=== PATIENT | male | born 1965 | race Caucasian/White ===

== ENCOUNTER 2020-09-30 20:33 | Inpatient (IN) | payer SELFPAY ==
[2020-09-30] MEDS ORDERED: Aspirin 81 MG Tab.Chew PO ONE (20:59)
[2020-09-30] MEDS ORDERED: Sodium Chloride 0.9% 2.5 ML Syringe FLUSH PRN (20:59)
[2020-09-30] MEDS ORDERED: Sodium Chloride 0.9% 10 ML Syringe FLUSH PRN (20:59)
[2020-09-30] MEDS ORDERED: Nitroglycerin 2% Oint 1 GM UD Packet TOP ONE (21:01)
[2020-09-30] MEDS ORDERED: Furosemide 40 MG/4 ML VIAL IVPUSH ONE (21:01)
[2020-09-30] MEDS ORDERED: Enalaprilat 1.25 MG/ML SDV IVPUSH ONE (21:02)
--- NOTE | 2020-09-30 21:07 | EDM.PDOC ---
ED HPI GENERAL MEDICAL PROBLEM - General Chief Complaint: Cardiovascular Problem Stated Complaint: SWOLLEN LEGS Time Seen by Provider: 09/30/20 20:43 - History of Present Illness INITIAL COMMENTS - FREE TEXT/NARRATIVE: HISTORY AND PHYSICAL: History of present illness: This is a 55-year-old gentleman who presents ER today secondary to increasing shortness of breath over the last several days with increased lower extremity edema, increased dyspnea on exertion, increased orthopnea, positive PND. Patient denies any history of hypertension, diabetes, liver, lung, kidney, congestive heart failure, WI, strokes, PE, DVT history. Patient denies any recent fevers, shakes, chills, nausea, vomiting, diarrhea, dysuria, frequency, urgency. Patient reports that he has a long history of tobacco use and he has a chronic smoker's cough however he reports increased cough with some clear sputum over the last several days. Patient denies any hemoptysis. Patient denies any coronavirus concerns. Patient denies any abdominal pain. Patient denies any rhinorrhea or sore throat. Patient reports he feels like his abdomen is distended and that he has not moved his bowels as normal as usual. Patient reports that he has not seen a physician in quite some time but he normally checks his blood pressure at home and last time he checked it was approximately 4 months ago and he said that it was normal, 115/70 range per patient's report. Review of systems: As per history of present illness and below otherwise all systems reviewed and negative. Past medical history: As per history of present illness and as reviewed below otherwise noncontributory. Surgical history: As per history of present illness and as reviewed below otherwise noncontributory. Social history: No reported history of drug or alcohol abuse. Family history: As per history of present illness and as reviewed below otherwise noncontributory. Physical exam: Constitutional: Patient is oriented to person, place, and time. Appears well- developed and well-nourished. No distress. HEENT: Moist mucous membranes Head: Normocephalic and atraumatic Eyes: Right eye exhibits no discharge. Left eye exhibits no discharge. No scleral icterus Neck: Normal range of motion. No tracheal deviation present. Cardiovascular: Normal rate and regular rhythm. Pulmonary: Effort normal, no respiratory distress. Abdominal: No distention Musculoskeletal: Normal range of motion Neurologic: Alert and oriented to person, place and time. Skin: [place], warm and dry. Psychiatric: Normal mood and affect. Behavior is normal. Judgment and thought content normal. Nursing note and vital signs have been reviewed Patient's ER physical exam is significant for tachypnea, patient's pulse ox is 88% on room air, patient has 2-3+ bipedal edema extending up to his thigh. Patient has no scrotal edema or abdominal wall edema. Patient has diminished breath sounds bilaterally his lungs, he is tachypneic, he does have some bibasilar rales as well. Patient's heart is tachycardic with a rate of 126. Diagnostics: EKG: As interpreted by ER physician: Edwardo: Nonspecific ST-T wave abnormalities Normal axis No evidence of ST elevation WI Sinus tachycardia 126 Therapeutics: IV enalapril Lasix 40 mg IV Nitropaste 2 inches anterior chest wall 2 L nasal cannula O2 Assessment and plan: This is a 55-year-old gentleman with no significant past medical history with poor access to healthcare who presents ER today with increased shortness of breath and signs symptoms consistent with likely new onset pulmonary edema/CHF. Patient will have labs drawn including a CBC, CMP, BNP, troponin, chest x-ray. Patient be given Lasix 40 mg IV, aspirin 325 mg p.o., Nitropaste 2 inches to the anterior chest wall, and enalapril 1.25 mg IV. Patient with significantly elev ated blood pressure. Patient is not on any antihypertensive medications at this time. Given his elevated blood pressure and his congestive heart failure symptoms patient will be treated aggressively for his hypertension with Nitropaste, Lasix as well as IV enalapril. Critical Care: The high probability of sudden, clinically significant deterioration in the patient's condition required the highest level of my preparedness to intervene urgently. The services I provided to this patient were to treat and/or prevent clinically significant deterioration. Services included the following: chart data review, reviewing nursing notes and/or old charts, documentation time, automotive consultant collaboration regarding findings and treatment options, medication orders and management, direct patient care, vital sign assessments and ordering, interpreting and reviewing diagnostic studies/lab tests. Aggregate critical care time includes only time during which I was engaged inwork directly related to the patient's care, as described above, whether at the bedside or elsewhere in the Emergency Department. It did not include time spent performing other reported procedures or the services of residents, students, nurses or physician assistants. Critical Care Time: 35 minutes Patient presents ER today with accelerated hypertension/hypertensive urgency with pulmonary edema resulting in respiratory failure secondary to hypoxia. Patient responding well to 2 L of O2 nasal cannula. Patient given Lasix 40 mg IV with good diuresis. Enalapril 1.25 IV given as well as Nitropaste 2 inches anterior chest wall with improvement in his blood pressure. Patient's blood pressure currently is 145/76. I have discussed the case with Dr. Morgan who agrees with inpatient level of care for this patient. Definitive disposition and diagnosis as appropriate pending reevaluation and review of above. Bilateral Lower Leg Pain Score (Numeric/FACES): 3 - Related Data Allergies Allergy/AdvReac Type Severity Reaction Status Date / Time No Known Allergies Allergy Verified 09/30/20 20:56 Home Meds: Home Meds . [No Known Home Meds] 09/30/20 [History] ED ROS GENERAL - Review of Systems Review Of Systems: See Below ED EXAM, GENERAL - Physical Exam Exam: See Below #1 Interpretation EKG Interpretation Comments: EKG: As interpreted by ER physician: Edwardo: Nonspecific ST-T wave abnormalities Normal axis No evidence of ST elevation [place] Sinus tachycardia at 126 Course - Vital Signs Last Recorded V/S: Last Vital Signs Temp 96.8 F L 09/30/20 20:53 Pulse 114 H 09/30/20 22:25 Resp 18 09/30/20 22:25 BP 135/84 09/30/20 22:25 Pulse Ox 99 09/30/20 22:25 - Orders/Labs/Meds Orders: Active Orders 24 hr Category Date Time Status Cardiac Monitoring [RC] . DIRECTED Care 09/30/20 20:59 Active EKG Documentation Completion [RC] AM Care 09/30/20 20:59 Active Pulse Oximetry [RC] ASDIRECTED Care 09/30/20 20:59 Active Sodium Chloride 0.9% [Saline Flush] Med 09/30/20 20:59 Active 10 ml FLUSH ASDIRECTED PRN Sodium Chloride 0.9% [Saline Flush] Med 09/30/20 20:59 Active 2.5 ml FLUSH ASDIRECTED PRN Saline Lock Insert [OM.PC] Stat Oth 09/30/20 20:59 Ordered Medication Orders Sodium Chloride (Saline Flush) 10 ml FLUSH ASDIRECTED PRN PRN Reason: Keep Vein Open Last Admin: 09/30/20 21:05 Dose: 10 ml Documented by: PAT Sodium Chloride (Saline Flush) 2.5 ml FLUSH ASDIRECTED PRN PRN Reason: Keep Vein Open Last Admin: 09/30/20 21:05 Dose: 2.5 ml Documented by: PAT Labs: Laboratory Tests 09/30/20 09/30/20 09/30/20 Range/Units 20:46 20:46 20:46 WBC 12.36 H (4.0-11.0) K/uL RBC 5.81 (4.50-5.90) M/uL Hgb 12.7 L (13.0-17.0) g/dL Hct 43.5 (38.0-50.0) % MCV 74.9 L (80.0-98.0) fL MCH 21.9 L (27.0-32.0) pg MCHC 29.2 L (31.0-37.0) g/dL RDW Std Deviation 45.9 (28.0-62.0) fl RDW Coeff of Chelsie 17 H (11.0-15.0) % Plt Count 365 (150-400) K/uL MPV 9.50 (7.40-12.00) fL Neut % (Auto) 75.5 (48.0-80.0) % Lymph % (Auto) 16.3 (16.0-40.0) % Arthur % (Auto) 6.8 (0.0-15.0) % Eos % (Auto) 1.0 (0.0-7.0) % Baso % (Auto) 0.4 (0.0-1.5) % Neut # (Auto) 9.3 H (1.4-5.7) K/uL Lymph # (Auto) 2.0 (0.6-2.4) K/uL Arthur # (Auto) 0.8 (0.0-0.8) K/uL Eos # (Auto) 0.1 (0.0-0.7) K/uL Baso # (Auto) 0.1 (0.0-0.1) K/uL Nucleated RBC % 0.0 /100WBC Nucleated RBCs # 0 K/uL INR 1.14 Sodium 140 (136-148) mmol/L Potassium 3.6 (3.5-5.1) mmol/L Chloride 103 (98-107) mmol/L Carbon Dioxide 27.8 (21.0-32.0) mmol/L BUN 17 (7.0-18.0) mg/dL Creatinine 1.4 H (0.8-1.3) mg/dL Est Cr Clr Drug Dosing 57.68 mL/min Estimated GFR (MDRD) 52.6 ml/min Glucose 195 H (74-106) mg/dL Calcium 9.0 (8.5-10.1) mg/dL Magnesium 2.2 (1.8-2.4) mg/dL Total Bilirubin 0.6 (0.2-1.0) mg/dL AST 28 (15-37) IU/L ALT 42 (14-63) IU/L Alkaline Phosphatase 166 H (46-116) U/L Troponin I 0.053 (0.000-0.056) ng/mL B-Natriuretic Peptide (<100) PG/ML Total Protein 7.2 (6.4-8.2) g/dL Albumin 3.3 L (3.4-5.0) g/dL Globulin 3.9 (2.6-4.0) g/dL Albumin/Globulin Ratio 0.9 (0.9-1.6) SARS-CoV-2 RNA (LAURA) (NEGATIVE) 09/30/20 09/30/20 Range/Units 20:46 21:00 WBC (4.0-11.0) K/uL RBC (4.50-5.90) M/uL Hgb (13.0-17.0) g/dL Hct (38.0-50.0) % MCV (80.0-98.0) fL MCH (27.0-32.0) pg MCHC (31.0-37.0) g/dL RDW Std Deviation (28.0-62.0) fl RDW Coeff of Chelsie (11.0-15.0) % Plt Count (150-400) K/uL MPV (7.40-12.00) fL Neut % (Auto) (48.0-80.0) % Lymph % (Auto) (16.0-40.0) % Arthur % (Auto) (0.0-15.0) % Eos % (Auto) (0.0-7.0) % Baso % (Auto) (0.0-1.5) % Neut # (Auto) (1.4-5.7) K/uL Lymph # (Auto) (0.6-2.4) K/uL Arthur # (Auto) (0.0-0.8) K/uL Eos # (Auto) (0.0-0.7) K/uL Baso # (Auto) (0.0-0.1) K/uL Nucleated RBC % /100WBC Nucleated RBCs # K/uL INR Sodium (136-148) mmol/L Potassium (3.5-5.1) mmol/L Chloride (98-107) mmol/L Carbon Dioxide (21.0-32.0) mmol/L BUN (7.0-18.0) mg/dL Creatinine (0.8-1.3) mg/dL Est Cr Clr Drug Dosing mL/min Estimated GFR (MDRD) ml/min Glucose (74-106) mg/dL Calcium (8.5-10.1) mg/dL Magnesium (1.8-2.4) mg/dL Total Bilirubin (0.2-1.0) mg/dL AST (15-37) IU/L ALT (14-63) IU/L Alkaline Phosphatase (46-116) U/L Troponin I (0.000-0.056) ng/mL B-Natriuretic Peptide 840 H (<100) PG/ML Total Protein (6.4-8.2) g/dL Albumin (3.4-5.0) g/dL Globulin (2.6-4.0) g/dL Albumin/Globulin Ratio (0.9-1.6) SARS-CoV-2 RNA (LAURA) NEGATIVE (NEGATIVE) Meds: Medications Generic Name Dose Route Start Last Admin Trade Name Freq PRN Reason Stop Dose Admin Sodium Chloride 10 ml 09/30/20 20:59 09/30/20 21:05 Saline Flush FLUSH 10 ml ASDIRECTED PRN Administration Keep Vein Open Sodium Chloride 2.5 ml 09/30/20 20:59 09/30/20 21:05 Saline Flush FLUSH 2.5 ml ASDIRECTED PRN Administration Keep Vein Open Discontinued Medications Generic Name Dose Route Start Last Admin Trade Name Freq PRN Reason Stop Dose Admin Aspirin 324 mg 09/30/20 20:59 09/30/20 21:05 Aspirin PO 09/30/20 21:00 324 mg ONETIME ONE Administration Enalaprilat 1.25 mg 09/30/20 21:02 09/30/20 21:12 Vasotec Iv IVPUSH 09/30/20 21:03 1.25 mg ONETIME ONE Administration Furosemide 40 mg 09/30/20 21:01 09/30/20 21:05 Lasix IVPUSH 09/30/20 21:02 40 mg NOW ONE Administration Nitroglycerin 2 gm 09/30/20 21:01 09/30/20 21:05 Nitro-Bid 2% TOP 09/30/20 21:02 2 gm ONETIME ONE Administration Departure - Departure Time of Disposition: 22:12 Disposition: Admitted As Inpatient 66 Condition: Fair Clinical Impression: Hypertensive heart disease, Pulmonary edema with congestive heart failure, Respiratory failure with hypoxia, Hypertensive urgency, malignant Sepsis Event Note (ED) - Evaluation Sepsis Screening Result: No Definite Risk - Focused Exam Vital Signs: Vital Signs Temp Pulse Resp BP BP Pulse Ox 09/30/20 21:46 118 H 141/91 H 98 09/30/20 21:12 116 H 18 167/117 H 167/117 H 96 09/30/20 20:53 96.8 F L 125 H 20 181/120 H 98 - My Orders Last 24 Hours: My Active Orders 09/30/20 20:59 Cardiac Monitoring [RC] . DIRECTED EKG Documentation Completion [RC] AM Pulse Oximetry [RC] ASDIRECTED Sodium Chloride 0.9% [Saline Flush] 10 ml FLUSH ASDIRECTED PRN Sodium Chloride 0.9% [Saline Flush] 2.5 ml FLUSH ASDIRECTED PRN Saline Lock Insert [OM.PC] Stat - Assessment/Plan Last 24 Hours: My Active Orders 09/30/20 20:59 Cardiac Monitoring [RC] . DIRECTED EKG Documentation Completion [RC] AM Pulse Oximetry [RC] ASDIRECTED Sodium Chloride 0.9% [Saline Flush] 10 ml FLUSH ASDIRECTED PRN Sodium Chloride 0.9% [Saline Flush] 2.5 ml FLUSH ASDIRECTED PRN Saline Lock Insert [OM.PC] Stat
[2020-09-30 21:18] LABS: CARBON DIOXIDE,CO2 27.8 mmol/L (21.0-32.0); POTASSIUM,K 3.6 mmol/L (3.5-5.1)
--- NOTE | 2020-09-30 21:37 | CR ---
Indication: Shortness of breath. Technique: AP portable view of the chest. Comparison: None Findings: The heart is enlarged. No focal infiltrate, pleural effusion, or pneumothorax is identified. Impression: Cardiomegaly. Dictated by Pari Cruz MD @ Sep 30 2020 9:34PM Signed by Dr. Pari Cruz @ Sep 30 2020 9:36PM
[2020-10-01] MEDS ORDERED: 50% Dextrose in Water 50 ML Syringe IV PRN ×2 (00:04→08:49)
[2020-10-01] MEDS ORDERED: Glucagon,Human Recombinant 1 MG Vial IM PRN ×2 (00:04→08:49)
[2020-10-01] MEDS ORDERED: 50% Dextrose in Water 50 ML Syringe IVPUSH PRN (00:09)
[2020-10-01 06:50] LABS: CARBON DIOXIDE,CO2 29.8 mmol/L (21.0-32.0); POTASSIUM,K 3.8 mmol/L (3.5-5.1)
[2020-10-01] MEDS ORDERED: Insulin Aspart 100 Units/ML 3 ML Pen SUBCUT SCH ×2 (07:30→11:30)
--- NOTE | 2020-10-01 07:50 | PCM.HP.2 ---
H&P History of Present Illness - General Date of Service: 10/01/20 Admit Problem/Dx: Admission Diagnosis/Problem Admission Diagnosis/Problem Pulmonary edema w/congestive heart failure w/ preserved LV function Source of Information: Patient History Limitations: Reports: No Limitations - History of Present Illness Initial Comments - Free Text/Narative: 55-year-old male presented complaining of shortness of breath, leg swelling, abdominal distention and cough for the past 2 weeks. He reports no significant PMH. Patient reports his symptoms have been on and off for the past few months but he started noticing a significant difference over the past 2 weeks. He also reports feeling short of breath when laying down and has gained a lot of weight in recent weeks. Smokes tobacco, drinks alcohol occasionally and denies illicit drug use. He denies having any fevers, chills, sore throat, chest pain, nausea, vomiting, abdominal pain, blood in stool, blood in urine, numbness or tingling in extremities. In the ER, CBC and CMP unremarkable. BNP 840. Troponin was negative. CXR showed cardiomegaly. Patient requiring 2 L NC. He was given IV enalapril, aspirin 325 mg, nitro paste and IV lasix 40 mg. Patient admitted for further evaluation and treatment. Bilateral Lower Leg Pain Score (Numeric/FACES): 3 - Related Data Allergies/Adverse Reactions: Allergies Allergy/AdvReac Type Severity Reaction Status Date / Time No Known Allergies Allergy Verified 09/30/20 20:56 Home Medications: Home Meds Furosemide 40 mg PO DAILY 30 Days #30 tablet 10/01/20 [Rx] Past Medical History - Past Health History Medical/Surgical History: Denies Medical/Surgical History - Infectious Disease History Infectious Disease History: Reports: Chicken Pox Social & Family History - Family History Family Medical History: Noncontributory - Tobacco Use Tobacco Use Status *Q: Current Every Day Tobacco User Years of Tobacco use: 30 Packs/Tins Daily: 1 Used Tobacco, but Quit: No - Caffeine Use Caffeine Use: Reports: None - Recreational Drug Use Recreational Drug Use: No H&P Review of Systems - Review of Systems: Review Of Systems: Comprehensive ROS is negative, except as noted in HPI. Exam - Exam Exam: See Below - Vital Signs Vital Signs: Last Vital Signs Temp 36.4 C 10/01/20 04:29 Pulse 110 H 10/01/20 04:29 Resp 18 10/01/20 04:29 BP 90/51 L 10/01/20 04:29 Pulse Ox 90 L 10/01/20 04:29 Weight: 101.6 kg - Exam General: Alert, Oriented, Cooperative HEENT: Conjunctiva Clear, EOMI, Hearing Intact, Pupils Equal, Pupils Reactive Neck: Supple, Trachea Midline Lungs: Normal Respiratory Effort, Other (rales in bases b/l) Cardiovascular: Regular Rate, Regular Rhythm GI/Abdominal Exam: Normal Bowel Sounds, Soft, Non-Tender, Other (abdominal distention, soft, non-tender) Extremities: Other (2+ pitting edema b/l) Skin: Warm, Dry, Intact Neurological: Cranial Nerves Intact, Strength Equal Bilateral, Normal Speech, Normal Tone Psychiatric: Alert, Normal Affect, Normal Mood - Patient Data Lab Results Last 24 hrs: Laboratory Results - last 24 hr 09/30/20 09/30/20 09/30/20 Range/Units 20:46 20:46 20:46 WBC 12.36 H (4.0-11.0) K/uL RBC 5.81 (4.50-5.90) M/uL Hgb 12.7 L (13.0-17.0) g/dL Hct 43.5 (38.0-50.0) % MCV 74.9 L (80.0-98.0) fL MCH 21.9 L (27.0-32.0) pg MCHC 29.2 L (31.0-37.0) g/dL RDW Std Deviation 45.9 (28.0-62.0) fl RDW Coeff of Chelsie 17 H (11.0-15.0) % Plt Count 365 (150-400) K/uL MPV 9.50 (7.40-12.00) fL Neut % (Auto) 75.5 (48.0-80.0) % Lymph % (Auto) 16.3 (16.0-40.0) % Green % (Auto) 6.8 (0.0-15.0) % Eos % (Auto) 1.0 (0.0-7.0) % Baso % (Auto) 0.4 (0.0-1.5) % Neut # (Auto) 9.3 H (1.4-5.7) K/uL Lymph # (Auto) 2.0 (0.6-2.4) K/uL Green # (Auto) 0.8 (0.0-0.8) K/uL Eos # (Auto) 0.1 (0.0-0.7) K/uL Baso # (Auto) 0.1 (0.0-0.1) K/uL Nucleated RBC % 0.0 /100WBC Nucleated RBCs # 0 K/uL INR 1.14 Sodium 140 (136-148) mmol/L Potassium 3.6 (3.5-5.1) mmol/L Chloride 103 (98-107) mmol/L Carbon Dioxide 27.8 (21.0-32.0) mmol/L BUN 17 (7.0-18.0) mg/dL Creatinine 1.4 H (0.8-1.3) mg/dL Est Cr Clr Drug Dosing 57.68 mL/min Estimated GFR (MDRD) 52.6 ml/min Glucose 195 H (74-106) mg/dL Calcium 9.0 (8.5-10.1) mg/dL Magnesium 2.2 (1.8-2.4) mg/dL Total Bilirubin 0.6 (0.2-1.0) mg/dL AST 28 (15-37) IU/L ALT 42 (14-63) IU/L Alkaline Phosphatase 166 H (46-116) U/L Troponin I 0.053 (0.000-0.056) ng/mL B-Natriuretic Peptide (<100) PG/ML Total Protein 7.2 (6.4-8.2) g/dL Albumin 3.3 L (3.4-5.0) g/dL Globulin 3.9 (2.6-4.0) g/dL Albumin/Globulin Ratio 0.9 (0.9-1.6) Urine Color Urine Appearance Urine pH (5.0-8.0) Ur Specific [place] (1.001-1.035) Urine Protein (NEGATIVE) mg/dL Urine Glucose (UA) (NEGATIVE) mg/dL Urine Ketones (NEGATIVE) mg/dL Urine Occult Blood (NEGATIVE) Urine Nitrite (NEGATIVE) Urine Bilirubin (NEGATIVE) Urine Urobilinogen (<2.0) EU/dL Ur Leukocyte Esterase (NEGATIVE) Urine Opiates Screen (NEGATIVE) Ur Oxycodone Screen (NEGATIVE) Urine Methadone Screen (NEGATIVE) Ur Barbiturates Screen (NEGATIVE) Ur Phencyclidine Scrn (NEGATIVE) Ur Amphetamine Screen (NEGATIVE) U Methamphetamines Scrn (NEGATIVE) U Benzodiazepines Scrn (NEGATIVE) U Cocaine Metab Screen (NEGATIVE) U Marijuana (THC) Screen (NEGATIVE) SARS-CoV-2 RNA (LAURA) (NEGATIVE) 09/30/20 09/30/20 09/30/20 Range/Units 20:46 21:00 22:23 WBC (4.0-11.0) K/uL RBC (4.50-5.90) M/uL Hgb (13.0-17.0) g/dL Hct (38.0-50.0) % MCV (80.0-98.0) fL MCH (27.0-32.0) pg MCHC (31.0-37.0) g/dL RDW Std Deviation (28.0-62.0) fl RDW Coeff of Chelsie (11.0-15.0) % Plt Count (150-400) K/uL MPV (7.40-12.00) fL Neut % (Auto) (48.0-80.0) % Lymph % (Auto) (16.0-40.0) % Green % (Auto) (0.0-15.0) % Eos % (Auto) (0.0-7.0) % Baso % (Auto) (0.0-1.5) % Neut # (Auto) (1.4-5.7) K/uL Lymph # (Auto) (0.6-2.4) K/uL Green # (Auto) (0.0-0.8) K/uL Eos # (Auto) (0.0-0.7) K/uL Baso # (Auto) (0.0-0.1) K/uL Nucleated RBC % /100WBC Nucleated RBCs # K/uL INR Sodium (136-148) mmol/L Potassium (3.5-5.1) mmol/L Chloride (98-107) mmol/L Carbon Dioxide (21.0-32.0) mmol/L BUN (7.0-18.0) mg/dL Creatinine (0.8-1.3) mg/dL Est Cr Clr Drug Dosing mL/min Estimated GFR (MDRD) ml/min Glucose (74-106) mg/dL Calcium (8.5-10.1) mg/dL Magnesium (1.8-2.4) mg/dL Total Bilirubin (0.2-1.0) mg/dL AST (15-37) IU/L ALT (14-63) IU/L Alkaline Phosphatase (46-116) U/L Troponin I (0.000-0.056) ng/mL B-Natriuretic Peptide 840 H (<100) PG/ML Total Protein (6.4-8.2) g/dL Albumin (3.4-5.0) g/dL Globulin (2.6-4.0) g/dL Albumin/Globulin Ratio (0.9-1.6) Urine Color Urine Appearance Urine pH (5.0-8.0) Ur Specific [place] (1.001-1.035) Urine Protein (NEGATIVE) mg/dL Urine Glucose (UA) (NEGATIVE) mg/dL Urine Ketones (NEGATIVE) mg/dL Urine Occult Blood (NEGATIVE) Urine Nitrite (NEGATIVE) Urine Bilirubin (NEGATIVE) Urine Urobilinogen (<2.0) EU/dL Ur Leukocyte Esterase (NEGATIVE) Urine Opiates Screen NEGATIVE (NEGATIVE) Ur Oxycodone Screen NEGATIVE (NEGATIVE) Urine Methadone Screen NEGATIVE (NEGATIVE) Ur Barbiturates Screen NEGATIVE (NEGATIVE) Ur Phencyclidine Scrn NEGATIVE (NEGATIVE) Ur Amphetamine Screen NEGATIVE (NEGATIVE) U Methamphetamines Scrn NEGATIVE (NEGATIVE) U Benzodiazepines Scrn NEGATIVE (NEGATIVE) U Cocaine Metab Screen NEGATIVE (NEGATIVE) U Marijuana (THC) Screen NEGATIVE (NEGATIVE) SARS-CoV-2 RNA (LAURA) NEGATIVE (NEGATIVE) 09/30/20 10/01/20 10/01/20 Range/Units 22:23 05:00 05:00 WBC 11.60 H (4.0-11.0) K/uL RBC 5.09 (4.50-5.90) M/uL Hgb 11.0 L (13.0-17.0) g/dL Hct 38.2 (38.0-50.0) % MCV 75.0 L (80.0-98.0) fL MCH 21.6 L (27.0-32.0) pg MCHC 28.8 L (31.0-37.0) g/dL RDW Std Deviation 46.2 (28.0-62.0) fl RDW Coeff of Chelsie 17 H (11.0-15.0) % Plt Count 377 (150-400) K/uL MPV 10.00 (7.40-12.00) fL Neut % (Auto) 74.5 (48.0-80.0) % Lymph % (Auto) 15.3 L (16.0-40.0) % Green % (Auto) 8.5 (0.0-15.0) % Eos % (Auto) 1.3 (0.0-7.0) % Baso % (Auto) 0.4 (0.0-1.5) % Neut # (Auto) 8.6 H (1.4-5.7) K/uL Lymph # (Auto) 1.8 (0.6-2.4) K/uL Green # (Auto) 1.0 H (0.0-0.8) K/uL Eos # (Auto) 0.2 (0.0-0.7) K/uL Baso # (Auto) 0.1 (0.0-0.1) K/uL Nucleated RBC % 0.0 /100WBC Nucleated RBCs # 0 K/uL INR Sodium 142 (136-148) mmol/L Potassium 3.8 (3.5-5.1) mmol/L Chloride 105 (98-107) mmol/L Carbon Dioxide 29.8 (21.0-32.0) mmol/L BUN 17 (7.0-18.0) mg/dL Creatinine 1.3 (0.8-1.3) mg/dL Est Cr Clr Drug Dosing 62.12 mL/min Estimated GFR (MDRD) 57.3 ml/min Glucose 125 H (74-106) mg/dL Calcium 8.3 L (8.5-10.1) mg/dL Magnesium (1.8-2.4) mg/dL Total Bilirubin (0.2-1.0) mg/dL AST (15-37) IU/L ALT (14-63) IU/L Alkaline Phosphatase (46-116) U/L Troponin I (0.000-0.056) ng/mL B-Natriuretic Peptide (<100) PG/ML Total Protein (6.4-8.2) g/dL Albumin (3.4-5.0) g/dL Globulin (2.6-4.0) g/dL Albumin/Globulin Ratio (0.9-1.6) Urine Color COLORLESS Urine Appearance CLEAR Urine pH 7.0 (5.0-8.0) Ur Specific [place] 1.010 (1.001-1.035) Urine Protein NEGATIVE (NEGATIVE) mg/dL Urine Glucose (UA) NEGATIVE (NEGATIVE) mg/dL Urine Ketones NEGATIVE (NEGATIVE) mg/dL Urine Occult Blood NEGATIVE (NEGATIVE) Urine Nitrite NEGATIVE (NEGATIVE) Urine Bilirubin NEGATIVE (NEGATIVE) Urine Urobilinogen 0.2 (<2.0) EU/dL Ur Leukocyte Esterase NEGATIVE (NEGATIVE) Urine Opiates Screen (NEGATIVE) Ur Oxycodone Screen (NEGATIVE) Urine Methadone Screen (NEGATIVE) Ur Barbiturates Screen (NEGATIVE) Ur Phencyclidine Scrn (NEGATIVE) Ur Amphetamine Screen (NEGATIVE) U Methamphetamines Scrn (NEGATIVE) U Benzodiazepines Scrn (NEGATIVE) U Cocaine Metab Screen (NEGATIVE) U Marijuana (THC) Screen (NEGATIVE) SARS-CoV-2 RNA (LAURA) (NEGATIVE) Result Diagrams: 10/01/20 05:00 10/01/20 05:00 Sepsis Event Note - Evaluation Sepsis Screening Result: No Definite Risk - Focused Exam Vital Signs: Vital Signs Temp Pulse Resp BP BP Pulse Ox 10/01/20 04:29 36.4 C 110 H 18 90/51 L 90 L 09/30/20 23:10 36.1 C 115 H 17 135/94 H 98 09/30/20 22:55 114 H 16 139/84 98 09/30/20 22:25 114 H 18 135/84 99 09/30/20 21:46 118 H 141/91 H 98 09/30/20 21:12 116 H 18 167/117 H 167/117 H 96 09/30/20 20:53 36.0 C L 125 H 20 181/120 H 98 - Problem List (1) CHF (congestive heart failure) SNOMED Code(s): 20595953 ICD Code: I50.9 - HEART FAILURE, UNSPECIFIED Status: Acute (2) HTN (hypertension) SNOMED Code(s): 37370479 ICD Code: I10 - ESSENTIAL (PRIMARY) HYPERTENSION Status: Acute (3) Diabetes mellitus SNOMED Code(s): 43157258 ICD Code: E11.9 - TYPE 2 DIABETES MELLITUS WITHOUT COMPLICATIONS Status: Acute (4) Respiratory failure with hypoxia SNOMED Code(s): 58002871804261838 ICD Code: J96.91 - RESPIRATORY FAILURE, UNSPECIFIED WITH HYPOXIA Status: Acute Problem List Initiated/Reviewed/Updated: Yes Orders Last 24hrs: Active Orders 24 hr Category Date Time Status Patient Status [ADT] Routine ADT 09/30/20 22:09 Active Blood Glucose Check, Bedside [RC] TIDMEALS Care 10/01/20 00:01 Active Cardiac Monitoring [RC] . DIRECTED Care 09/30/20 20:59 Active Daily Weight [Height and Weight] [RC] DAILY Care 10/01/20 00:08 Active EKG Documentation Completion [RC] AM Care 09/30/20 20:59 Active Intake and Output Strict [RC] ASDIRECTED Care 10/01/20 00:08 Active Pulse Oximetry [RC] ASDIRECTED Care 09/30/20 20:59 Active Telemetry Monitoring [Cardiac Monitoring] [RC] . Care 10/01/20 00:09 Active DIRECTED ADA Diabetic [[place] [employer] Diet] [DIET Diet 10/01/20 Breakfast Active ] Fluid Restriction [DIET] Diet 10/01/20 Breakfast Active GLYCOSYLATED HEMOGLOBIN,HGBA1C [CHEM] Routine Lab 10/01/20 07:42 Ordered Dextrose 50% in Water Med 10/01/20 00:09 Active 50 ml IVPUSH ASDIRECTED PRN Glucagon,Human Recombinant [GlucaGen] Med 10/01/20 00:04 Active 1 mg IM ASDIRECTED PRN Insulin Aspart [NovoLOG] Med 10/01/20 07:30 Active See Protocol SUBCUT TIDAC Sodium Chloride 0.9% [Saline Flush] Med 09/30/20 20:59 Active 10 ml FLUSH ASDIRECTED PRN Sodium Chloride 0.9% [Saline Flush] Med 09/30/20 20:59 Active 2.5 ml FLUSH ASDIRECTED PRN Saline Lock Insert [OM.PC] Stat Oth 09/30/20 20:59 Ordered Medication Orders Dextrose/Water (Dextrose 50% In Water) 50 ml IVPUSH ASDIRECTED PRN PRN Reason: Hypoglycemia Glucagon (Glucagen) 1 mg IM ASDIRECTED PRN PRN Reason: Hypoglycemia Insulin Aspart (Novolog) 0 unit SUBCUT TIDAC SADA; Protocol Sodium Chloride (Saline Flush) 10 ml FLUSH ASDIRECTED PRN PRN Reason: Keep Vein Open Last Admin: 09/30/20 21:05 Dose: 10 ml Documented by: PAT Sodium Chloride (Saline Flush) 2.5 ml FLUSH ASDIRECTED PRN PRN Reason: Keep Vein Open Last Admin: 09/30/20 21:05 Dose: 2.5 ml Documented by: PAT Assessment/Plan Comment:: Assessment and Plan: 1. Acute hypoxic respiratory failure secondary to new-onset CHF exacerbation: - Admit to med/surg. Patient on telemetry. Will diurese with IV lasix 40 mg BID. Patient on strict I/O's, daily standing weight, fluid restrict < 2 L per day and low salt < 2 g per day. Unable to obtain ECHO over the weekend. 2. Diabetes mellitus type II: - HgbA1c 7.7. Patient on ADA diet, NovoLog SSI and accuchecks TIDAC. 3. DVT prophylaxis: - Lovenox 40 mg subcut qd.
[2020-10-01] MEDS ORDERED: Ondansetron 4 MG/2 ML SDV IVPUSH PRN (07:51)
[2020-10-01] MEDS ORDERED: Acetaminophen 325 MG Tab PO PRN (07:51)
[2020-10-01] MEDS ORDERED: Enoxaparin 40 MG/0.4 ML Syringe SUBCUT SCH (08:00)
[2020-10-01 08:13] LABS: HEMOGLOBIN A1C 7.7 % (4.5-6.2)
[2020-10-01] MEDS ORDERED: Furosemide 40 MG/4 ML VIAL IVPUSH SCH (09:00)
--- NOTE | 2020-10-01 14:02 | PCM.DCSUM1 ---
Discharge Summary - Hospital Course Free Text/Narrative:: 55-year-old male admitted for acute hypoxic respiratory failure secondary to new-onset CHF. He reported no significant PMH. CXR on admission showed cardiomegaly. BNP was 850. Troponin was negative. Patient was started on IV lasix and overnight noted significant important in his shortness of breath. Patient requested discharge the following morning against medical advice. It was recommended to patient to remain in the hospital for further diuresis with IV lasix, cardiac monitoring and to obtain ECHO. Patient's HgbA1c was 7.7 indicating new-onset type 2 DM. Despite being explained risks of leaving the hospital without completed treatment course patient still requested discharge against medical advice. He was provided scripts with PO lasix 40 mg qd and strongly advised to follow-up with a primary care provider as soon as possible and sanitor. He was given contact phone numbers to call and make these appointments. He was advised to monitor his blood pressure and return to the ER if he develops worsening shortness of breath, chest pain or leg swelling. - Discharge Data Discharge Date: 10/01/20 Discharge Disposition: Against Medical Advice 07 Condition: Stable - Referral to Home Health Primary Care Physician: PCP None - Discharge Diagnosis/Problem(s) (1) CHF (congestive heart failure) SNOMED Code(s): 72825455 ICD Code: I50.9 - HEART FAILURE, UNSPECIFIED Status: Acute (2) HTN (hypertension) SNOMED Code(s): 60115300 ICD Code: I10 - ESSENTIAL (PRIMARY) HYPERTENSION Status: Acute (3) Diabetes mellitus SNOMED Code(s): 26761686 ICD Code: E11.9 - TYPE 2 DIABETES MELLITUS WITHOUT COMPLICATIONS Status: Acute (4) Respiratory failure with hypoxia SNOMED Code(s): 52113813170464269 ICD Code: J96.91 - RESPIRATORY FAILURE, UNSPECIFIED WITH HYPOXIA Status: Acute - Patient Instructions Diet: Low Sodium, Diabetic Diet Fluid Restriction: 2000 mL Activity: Rest and Relax Today Notify Provider of: Fever, Increased Pain, Swelling and Redness, Drainage, Nausea and/or Vomiting - Discharge Plan *PRESCRIPTION DRUG MONITORING PROGRAM REVIEWED*: Not Applicable *COPY OF PRESCRIPTION DRUG MONITORING REPORT IN PATIENT GAIL: Not Applicable Prescriptions/Med Rec: Furosemide 40 mg PO DAILY 30 Days #30 tablet Home Medications: Home Meds Furosemide 40 mg PO DAILY 30 Days #30 tablet 10/01/20 [Rx] Patient Handouts: Type 2 Diabetes Mellitus, Diagnosis, Adult, Preventing Type 2 Diabetes Mellitus, Hyperglycemia, Jdfb-na-[id number], Type 2 Diabetes Mellitus, Self Care, Adult, [id number], Hypertension, Adult, Mini-fn-Gdzo, Acute Respiratory Failure, Adult, Heart Failure, Diagnosis, Kkqd-nt-Oxam, Pulmonary Edema, Mjcq-Vx-Bccf Forms: ED Department Discharge Referrals: Carter Luis MD [Physician] - (Please call on Saturday to set up earliest appointment available with Dr. Hill.) PCP,None [Primary Care Provider] - Joss Morales MD [Physician] - (Please call clinic on Saturday and obtain 1 week follow up with Dr. Morales.) - Discharge Summary/Plan Comment DC Time >30 min.: No - Patient Data Vitals - Most Recent: Last Vital Signs Temp 36.6 C 10/01/20 12:00 Pulse 110 H 10/01/20 12:00 Resp 18 10/01/20 12:00 BP 148/90 H 10/01/20 12:00 Pulse Ox 98 10/01/20 12:00 Weight - Most Recent: 101.6 kg I&O - Last 24 hours: Intake & Output 09/30/20 10/01/20 10/01/20 22:59 06:59 14:59 Intake Total 650 Output Total 1000 1050 Balance -1000 -400 Lab Results - Last 24 hrs: Laboratory Results - last 24 hr 09/30/20 09/30/20 09/30/20 Range/Units 20:46 20:46 20:46 WBC 12.36 H (4.0-11.0) K/uL RBC 5.81 (4.50-5.90) M/uL Hgb 12.7 L (13.0-17.0) g/dL Hct 43.5 (38.0-50.0) % MCV 74.9 L (80.0-98.0) fL MCH 21.9 L (27.0-32.0) pg MCHC 29.2 L (31.0-37.0) g/dL RDW Std Deviation 45.9 (28.0-62.0) fl RDW Coeff of Chelsie 17 H (11.0-15.0) % Plt Count 365 (150-400) K/uL MPV 9.50 (7.40-12.00) fL Neut % (Auto) 75.5 (48.0-80.0) % Lymph % (Auto) 16.3 (16.0-40.0) % [place] % (Auto) 6.8 (0.0-15.0) % Eos % (Auto) 1.0 (0.0-7.0) % Baso % (Auto) 0.4 (0.0-1.5) % Neut # (Auto) 9.3 H (1.4-5.7) K/uL Lymph # (Auto) 2.0 (0.6-2.4) K/uL [place] # (Auto) 0.8 (0.0-0.8) K/uL Eos # (Auto) 0.1 (0.0-0.7) K/uL Baso # (Auto) 0.1 (0.0-0.1) K/uL Nucleated RBC % 0.0 /100WBC Nucleated RBCs # 0 K/uL INR 1.14 Sodium 140 (136-148) mmol/L Potassium 3.6 (3.5-5.1) mmol/L Chloride 103 (98-107) mmol/L Carbon Dioxide 27.8 (21.0-32.0) mmol/L BUN 17 (7.0-18.0) mg/dL Creatinine 1.4 H (0.8-1.3) mg/dL Est Cr Clr Drug Dosing 57.68 mL/min Estimated GFR (MDRD) 52.6 ml/min Glucose 195 H (74-106) mg/dL Hemoglobin A1c (4.5-6.2) % Calcium 9.0 (8.5-10.1) mg/dL Magnesium 2.2 (1.8-2.4) mg/dL Total Bilirubin 0.6 (0.2-1.0) mg/dL AST 28 (15-37) IU/L ALT 42 (14-63) IU/L Alkaline Phosphatase 166 H (46-116) U/L Troponin I 0.053 (0.000-0.056) ng/mL B-Natriuretic Peptide (<100) PG/ML Total Protein 7.2 (6.4-8.2) g/dL Albumin 3.3 L (3.4-5.0) g/dL Globulin 3.9 (2.6-4.0) g/dL Albumin/Globulin Ratio 0.9 (0.9-1.6) Urine Color Urine Appearance Urine pH (5.0-8.0) Ur Specific Adams (1.001-1.035) Urine Protein (NEGATIVE) mg/dL Urine Glucose (UA) (NEGATIVE) mg/dL Urine Ketones (NEGATIVE) mg/dL Urine Occult Blood (NEGATIVE) Urine Nitrite (NEGATIVE) Urine Bilirubin (NEGATIVE) Urine Urobilinogen (<2.0) EU/dL Ur Leukocyte Esterase (NEGATIVE) Urine Opiates Screen (NEGATIVE) Ur Oxycodone Screen (NEGATIVE) Urine Methadone Screen (NEGATIVE) Ur Barbiturates Screen (NEGATIVE) Ur Phencyclidine Scrn (NEGATIVE) Ur Amphetamine Screen (NEGATIVE) U Methamphetamines Scrn (NEGATIVE) U Benzodiazepines Scrn (NEGATIVE) U Cocaine Metab Screen (NEGATIVE) U Marijuana (THC) Screen (NEGATIVE) SARS-CoV-2 RNA (LAURA) (NEGATIVE) 09/30/20 09/30/20 09/30/20 Range/Units 20:46 21:00 22:23 WBC (4.0-11.0) K/uL RBC (4.50-5.90) M/uL Hgb (13.0-17.0) g/dL Hct (38.0-50.0) % MCV (80.0-98.0) fL MCH (27.0-32.0) pg MCHC (31.0-37.0) g/dL RDW Std Deviation (28.0-62.0) fl RDW Coeff of Chelsie (11.0-15.0) % Plt Count (150-400) K/uL MPV (7.40-12.00) fL Neut % (Auto) (48.0-80.0) % Lymph % (Auto) (16.0-40.0) % [place] % (Auto) (0.0-15.0) % Eos % (Auto) (0.0-7.0) % Baso % (Auto) (0.0-1.5) % Neut # (Auto) (1.4-5.7) K/uL Lymph # (Auto) (0.6-2.4) K/uL [place] # (Auto) (0.0-0.8) K/uL Eos # (Auto) (0.0-0.7) K/uL Baso # (Auto) (0.0-0.1) K/uL Nucleated RBC % /100WBC Nucleated RBCs # K/uL INR Sodium (136-148) mmol/L Potassium (3.5-5.1) mmol/L Chloride (98-107) mmol/L Carbon Dioxide (21.0-32.0) mmol/L BUN (7.0-18.0) mg/dL Creatinine (0.8-1.3) mg/dL Est Cr Clr Drug Dosing mL/min Estimated GFR (MDRD) ml/min Glucose (74-106) mg/dL Hemoglobin A1c (4.5-6.2) % Calcium (8.5-10.1) mg/dL Magnesium (1.8-2.4) mg/dL Total Bilirubin (0.2-1.0) mg/dL AST (15-37) IU/L ALT (14-63) IU/L Alkaline Phosphatase (46-116) U/L Troponin I (0.000-0.056) ng/mL B-Natriuretic Peptide 840 H (<100) PG/ML Total Protein (6.4-8.2) g/dL Albumin (3.4-5.0) g/dL Globulin (2.6-4.0) g/dL Albumin/Globulin Ratio (0.9-1.6) Urine Color Urine Appearance Urine pH (5.0-8.0) Ur Specific Adams (1.001-1.035) Urine Protein (NEGATIVE) mg/dL Urine Glucose (UA) (NEGATIVE) mg/dL Urine Ketones (NEGATIVE) mg/dL Urine Occult Blood (NEGATIVE) Urine Nitrite (NEGATIVE) Urine Bilirubin (NEGATIVE) Urine Urobilinogen (<2.0) EU/dL Ur Leukocyte Esterase (NEGATIVE) Urine Opiates Screen NEGATIVE (NEGATIVE) Ur Oxycodone Screen NEGATIVE (NEGATIVE) Urine Methadone Screen NEGATIVE (NEGATIVE) Ur Barbiturates Screen NEGATIVE (NEGATIVE) Ur Phencyclidine Scrn NEGATIVE (NEGATIVE) Ur Amphetamine Screen NEGATIVE (NEGATIVE) U Methamphetamines Scrn NEGATIVE (NEGATIVE) U Benzodiazepines Scrn NEGATIVE (NEGATIVE) U Cocaine Metab Screen NEGATIVE (NEGATIVE) U Marijuana (THC) Screen NEGATIVE (NEGATIVE) SARS-CoV-2 RNA (LAURA) NEGATIVE (NEGATIVE) 09/30/20 10/01/20 10/01/20 Range/Units 22:23 05:00 05:00 WBC 11.60 H (4.0-11.0) K/uL RBC 5.09 (4.50-5.90) M/uL Hgb 11.0 L (13.0-17.0) g/dL Hct 38.2 (38.0-50.0) % MCV 75.0 L (80.0-98.0) fL MCH 21.6 L (27.0-32.0) pg MCHC 28.8 L (31.0-37.0) g/dL RDW Std Deviation 46.2 (28.0-62.0) fl RDW Coeff of Chelsie 17 H (11.0-15.0) % Plt Count 377 (150-400) K/uL MPV 10.00 (7.40-12.00) fL Neut % (Auto) 74.5 (48.0-80.0) % Lymph % (Auto) 15.3 L (16.0-40.0) % [place] % (Auto) 8.5 (0.0-15.0) % Eos % (Auto) 1.3 (0.0-7.0) % Baso % (Auto) 0.4 (0.0-1.5) % Neut # (Auto) 8.6 H (1.4-5.7) K/uL Lymph # (Auto) 1.8 (0.6-2.4) K/uL [place] # (Auto) 1.0 H (0.0-0.8) K/uL Eos # (Auto) 0.2 (0.0-0.7) K/uL Baso # (Auto) 0.1 (0.0-0.1) K/uL Nucleated RBC % 0.0 /100WBC Nucleated RBCs # 0 K/uL INR Sodium 142 (136-148) mmol/L Potassium 3.8 (3.5-5.1) mmol/L Chloride 105 (98-107) mmol/L Carbon Dioxide 29.8 (21.0-32.0) mmol/L BUN 17 (7.0-18.0) mg/dL Creatinine 1.3 (0.8-1.3) mg/dL Est Cr Clr Drug Dosing 62.12 mL/min Estimated GFR (MDRD) 57.3 ml/min Glucose 125 H (74-106) mg/dL Hemoglobin A1c (4.5-6.2) % Calcium 8.3 L (8.5-10.1) mg/dL Magnesium (1.8-2.4) mg/dL Total Bilirubin (0.2-1.0) mg/dL AST (15-37) IU/L ALT (14-63) IU/L Alkaline Phosphatase (46-116) U/L Troponin I (0.000-0.056) ng/mL B-Natriuretic Peptide (<100) PG/ML Total Protein (6.4-8.2) g/dL Albumin (3.4-5.0) g/dL Globulin (2.6-4.0) g/dL Albumin/Globulin Ratio (0.9-1.6) Urine Color COLORLESS Urine Appearance CLEAR Urine pH 7.0 (5.0-8.0) Ur Specific Adams 1.010 (1.001-1.035) Urine Protein NEGATIVE (NEGATIVE) mg/dL Urine Glucose (UA) NEGATIVE (NEGATIVE) mg/dL Urine Ketones NEGATIVE (NEGATIVE) mg/dL Urine Occult Blood NEGATIVE (NEGATIVE) Urine Nitrite NEGATIVE (NEGATIVE) Urine Bilirubin NEGATIVE (NEGATIVE) Urine Urobilinogen 0.2 (<2.0) EU/dL Ur Leukocyte Esterase NEGATIVE (NEGATIVE) Urine Opiates Screen (NEGATIVE) Ur Oxycodone Screen (NEGATIVE) Urine Methadone Screen (NEGATIVE) Ur Barbiturates Screen (NEGATIVE) Ur Phencyclidine Scrn (NEGATIVE) Ur Amphetamine Screen (NEGATIVE) U Methamphetamines Scrn (NEGATIVE) U Benzodiazepines Scrn (NEGATIVE) U Cocaine Metab Screen (NEGATIVE) U Marijuana (THC) Screen (NEGATIVE) SARS-CoV-2 RNA (LAURA) (NEGATIVE) 10/01/20 Range/Units 05:00 WBC (4.0-11.0) K/uL RBC (4.50-5.90) M/uL Hgb (13.0-17.0) g/dL Hct (38.0-50.0) % MCV (80.0-98.0) fL MCH (27.0-32.0) pg MCHC (31.0-37.0) g/dL RDW Std Deviation (28.0-62.0) fl RDW Coeff of Chelsie (11.0-15.0) % Plt Count (150-400) K/uL MPV (7.40-12.00) fL Neut % (Auto) (48.0-80.0) % Lymph % (Auto) (16.0-40.0) % [place] % (Auto) (0.0-15.0) % Eos % (Auto) (0.0-7.0) % Baso % (Auto) (0.0-1.5) % Neut # (Auto) (1.4-5.7) K/uL Lymph # (Auto) (0.6-2.4) K/uL [place] # (Auto) (0.0-0.8) K/uL Eos # (Auto) (0.0-0.7) K/uL Baso # (Auto) (0.0-0.1) K/uL Nucleated RBC % /100WBC Nucleated RBCs # K/uL INR Sodium (136-148) mmol/L Potassium (3.5-5.1) mmol/L Chloride (98-107) mmol/L Carbon Dioxide (21.0-32.0) mmol/L BUN (7.0-18.0) mg/dL Creatinine (0.8-1.3) mg/dL Est Cr Clr Drug Dosing mL/min Estimated GFR (MDRD) ml/min Glucose (74-106) mg/dL Hemoglobin A1c 7.7 H (4.5-6.2) % Calcium (8.5-10.1) mg/dL Magnesium (1.8-2.4) mg/dL Total Bilirubin (0.2-1.0) mg/dL AST (15-37) IU/L ALT (14-63) IU/L Alkaline Phosphatase (46-116) U/L Troponin I (0.000-0.056) ng/mL B-Natriuretic Peptide (<100) PG/ML Total Protein (6.4-8.2) g/dL Albumin (3.4-5.0) g/dL Globulin (2.6-4.0) g/dL Albumin/Globulin Ratio (0.9-1.6) Urine Color Urine Appearance Urine pH (5.0-8.0) Ur Specific Adams (1.001-1.035) Urine Protein (NEGATIVE) mg/dL Urine Glucose (UA) (NEGATIVE) mg/dL Urine Ketones (NEGATIVE) mg/dL Urine Occult Blood (NEGATIVE) Urine Nitrite (NEGATIVE) Urine Bilirubin (NEGATIVE) Urine Urobilinogen (<2.0) EU/dL Ur Leukocyte Esterase (NEGATIVE) Urine Opiates Screen (NEGATIVE) Ur Oxycodone Screen (NEGATIVE) Urine Methadone Screen (NEGATIVE) Ur Barbiturates Screen (NEGATIVE) Ur Phencyclidine Scrn (NEGATIVE) Ur Amphetamine Screen (NEGATIVE) U Methamphetamines Scrn (NEGATIVE) U Benzodiazepines Scrn (NEGATIVE) U Cocaine Metab Screen (NEGATIVE) U Marijuana (THC) Screen (NEGATIVE) SARS-CoV-2 RNA (LAURA) (NEGATIVE) Med Orders - Current: Current Medications Discontinued Medications Acetaminophen (Tylenol) 650 mg PO Q4H PRN PRN Reason: Pain (Mild 1-3)/fever Aspirin (Aspirin) 324 mg PO ONETIME ONE Stop: 09/30/20 21:00 Last Admin: 09/30/20 21:05 Dose: 324 mg Documented by: Dextrose/Water (Dextrose 50% In Water) 50 ml IV ASDIRECTED PRN PRN Reason: Hypoglycemia Dextrose/Water (Dextrose 50% In Water) 50 ml IVPUSH ASDIRECTED PRN PRN Reason: Hypoglycemia Dextrose/Water (Dextrose 50% In Water) 50 ml IV ASDIRECTED PRN PRN Reason: Hypoglycemia Enalaprilat (Vasotec Iv) 1.25 mg IVPUSH ONETIME ONE Stop: 09/30/20 21:03 Last Admin: 09/30/20 21:12 Dose: 1.25 mg Documented by: Enoxaparin Sodium (Lovenox) 40 mg SUBCUT Q24H [facility] Last Admin: 10/01/20 08:26 Dose: 40 mg Documented by: Furosemide (Lasix) 40 mg IVPUSH NOW ONE Stop: 09/30/20 21:02 Last Admin: 09/30/20 21:05 Dose: 40 mg Documented by: Furosemide (Lasix) 40 mg IVPUSH BIDDIURETIC [facility] Last Admin: 10/01/20 08:27 Dose: 40 mg Documented by: Glucagon (Glucagen) 1 mg IM ASDIRECTED PRN PRN Reason: Hypoglycemia Glucagon (Glucagen) 1 mg IM ASDIRECTED PRN PRN Reason: Hypoglycemia Insulin Aspart (Novolog) 0 unit SUBCUT TIDAC SADA; Protocol Insulin Aspart (Novolog) 0 unit SUBCUT TIDAC SADA; Protocol Nitroglycerin (Nitro-Bid 2%) 2 gm TOP ONETIME ONE Stop: 09/30/20 21:02 Last Admin: 09/30/20 21:05 Dose: 2 gm Documented by: Ondansetron HCl (Zofran) 4 mg IVPUSH Q4H PRN PRN Reason: Nausea Sodium Chloride (Saline Flush) 10 ml FLUSH ASDIRECTED PRN PRN Reason: Keep Vein Open Last Admin: 09/30/20 21:05 Dose: 10 ml Documented by: Sodium Chloride (Saline Flush) 2.5 ml FLUSH ASDIRECTED PRN PRN Reason: Keep Vein Open Last Admin: 09/30/20 21:05 Dose: 2.5 ml Documented by:
== END 2020-10-01 12:45 | disposition left against medical advice (07) | DRG 291 ==
LOC: MW.ED 20:33 → MW.MS 22:09
PROVIDERS: ADMIT Internal Medicine; ATTEND Internal Medicine
DX: I11.0 Hypertensive heart disease with heart failure (principal); J96.01 Acute respiratory failure with hypoxia; I50.9 Heart failure, unspecified; E11.9 Type 2 diabetes mellitus without complications; F17.200 Nicotine dependence, unspecified, uncomplicated; I16.0 Hypertensive urgency; Z20.828 Contact with and (suspected) exposure to other viral communicable diseases; Z79.899 Other long term (current) drug therapy
CPT/HCPCS: 36415; 71045; 71045-26; 80048; 80053; 80305-QW; 81003; 83036; 83735; 83880; 84484; 85025; 85610; 93005; 96374; 96375; 99285-25; A9270-GY; J1650; J1940; U0002

== ENCOUNTER 2020-11-22 13:17 | Inpatient (IN) | payer SELFPAY ==
[2020-11-22] MEDS ORDERED: Sodium Chloride 0.9% 2.5 ML Syringe FLUSH PRN ×2 (13:21→15:44)
[2020-11-22] MEDS ORDERED: Sodium Chloride 0.9% 10 ML Syringe FLUSH PRN (13:21)
[2020-11-22] MEDS ORDERED: Aspirin 81 MG Tab.Chew PO ONE (13:39)
[2020-11-22] MEDS ORDERED: Magnesium Sulfate/Water 2 GM in Premix Bag 1 BAG IV ONE (13:39)
[2020-11-22] MEDS ORDERED: Lactated Ringers 1,000 ML IV ONE (13:45)
--- NOTE | 2020-11-22 13:45 | EDM.PDOC ---
ED HPI GENERAL MEDICAL PROBLEM - General Chief Complaint: Chest Pain Stated Complaint: CHEST PAIN Time Seen by Provider: 11/22/20 13:20 Source of Information: Reports: Patient, Old Records History Limitations: Reports: No Limitations - History of Present Illness INITIAL COMMENTS - FREE TEXT/NARRATIVE: There is a very pleasant 55-year-old man with a recent hospitalization for new onset congestive heart failure. Was admitted the hospital in September 2020 with new onset CHF along with hypertension. He was noted to have cardiomegaly and was started on diuresis. He also had new onset type 2 diabetes mellitus. He signed out of the hospital AGAINST MEDICAL ADVICE, hospitalist had planned to obtain further diuresis and an echocardiogram. He was discharged with prescriptions for furosemide 40 mg daily. He did see a cellar supervisor on November 04, 2020 for hospital discharge follow-up. Progress note states that his leg swelling and improved with the furosemide prescription. Commissioning Specialist did order an echocardiogram, prescribed losartan 25 mg daily, advised salt and fluid restriction, and continue the furosemide prescription, also ordered an ECG exercise stress test and prescribed nitroglycerin. Echocardiogram done 11/14/2020 shows a left ventricular ejection fraction of 20%, severely decreased LVEF, severely increased LV internal cavity size, moderate right ventricular systolic dysfunction. This afternoon, he presents to the emergency department for chest discomfort and shortness of breath. The symptoms have been present for the past 3 days, since 11/20/2020. He reports substernal chest pressure which is nonradiating and constant over the past few days. He also reports dyspnea. Both the chest discomfort and dyspnea are present at rest and become worse when he exerts himself. He took 1 dose of his nitroglycerin about an hour prior to arrival without relief. He reports that he has been checking his pulse at home over the past couple of days and it has been steadily rising and getting worse. He denies any fever, chills, nausea, vomiting, diaphoresis, hemoptysis, asymmetric lower extremity pain or swelling, or chest wall trauma. No history of repeated vomiting. Denies any increase in weight or increase in lower extremity edema. Patient denies history of venous thromboembolism, lower extremity pain or swelling, hemoptysis, recent surgery or immobilization or long travel, history of active malignancy, or hormonal medication/product usage. ROS: A 10-point review of systems was negative, except as noted in the HPI (or in the ROS section of this note). Past medical history: Reviewed, no additional pertinent history. Surgical history: Reviewed in system, no additional pertinent history. Social history: Reviewed in system, no additional pertinent history. Family history: Reviewed in system, no additional pertinent history. PHYSICAL EXAM Vital signs reviewed. Nursing notes reviewed. Constitutional: Awake, alert, non-distressed. Head: Normocephalic, atraumatic. Eyes: EOMI, conjunctiva normal, no discharge, no scleral icterus. Ears, Nose, Throat: External ears and nose normal, moist oral mucosa. Cardiovascular: Tachycardic, 2+ radial pulses bilaterally, capillary refill less than 2 seconds. 1+ bilateral lower extremity edema which is symmetric. Pulmonary: normal work of breathing, no accessory muscle use. Abdomen/GI: Soft, nontender, nondistended, no guarding or rigidity, no masses. Musculoskeletal: No deformities. Integumentary: Appropriate color for ethnicity, warm, dry, no pallor or jaundice, no rash. Neurologic: Alert, answering questions appropriately, normal speech, no facial droop, moving all extremities well. Psychiatric: Appropriate mood and affect, normal thought process. This patient was seen and evaluated during the 2019 SARS-CoV-2 novel coronavirus pandemic period. Community viral transmission is ongoing at time of this encounter and the emergency department is operating under pandemic response procedures. Chest Pain Score (Numeric/FACES): 7 - Related Data Allergies Allergy/AdvReac Type Severity Reaction Status Date / Time No Known Allergies Allergy Verified 11/22/20 17:04 Home Meds: Home Meds Furosemide 40 mg PO DAILY 30 Days #30 tablet 10/01/20 [Rx] Past Medical History - Past Health History Medical/Surgical History: Denies Medical/Surgical History Cardiovascular History: Reports: Heart Failure - Infectious Disease History Infectious Disease History: Reports: Chicken Pox Social & Family History - Family History Family Medical History: No Pertinent Family History - Tobacco Use Tobacco Use Status *Q: Current Every Day Tobacco User Years of Tobacco use: 40 Packs/Tins Daily: 1 - Caffeine Use Caffeine Use: Reports: None - Recreational Drug Use Recreational Drug Use: No ED ROS GENERAL - Review of Systems Review Of Systems: See Below ED EXAM, GENERAL - Physical Exam Exam: See Below #1 Interpretation EKG Interpretation Comments: 12-Lead ECG Interpretation Acquired: 1:16 PM Rhythm: Likely atrial flutter Rate: 134 bpm [place]: Left axis deviation Intervals: Normal Ectopy: None RV Strain: No obvious RV strain pattern. ST Segments/T-Waves: No notable changes Acute Ischemic Changes: None apparent Interpretation: No STEMI Course - Vital Signs Text/Narrative:: 55-year-old male presenting with a 3-day history of chest discomfort, shortness of breath, and tachycardia. Differential diagnosis includes but is not limited to: Acute coronary syndrome, pulmonary embolism, arrhythmia, anemia, thyroid disease, volume depletion, and many others. 1:46 PM: I am concerned that the patient is in atrial flutter with rapid ventricular response. I am also concerned that he may have been in this rhythm for greater than 48 hours, so we should not cardiovert him here in the emergency department. I am going to give a 1 L fluid bolus along with some magnesium sulfate and see if his ventricular rate improves. We are also going to give full dose aspirin. Patient does not look grossly volume overloaded at this point, only has a minor amount of edema in the lower extremities. 2:11 PM: Commissioning Specialist paged, awaiting callback. 2:28 PM: CBC shows mild leukocytosis of 12.23, mild microcytic anemia, hemoglobin 12.3. Normal platelet count. Venous blood gas shows normal bicarbonate, slightly low CO2 at 25. Metabolic panel shows acute kidney injury with creatinine of 1.8, prior was 1.3-1.4 for baseline. Magnesium is normal. Alkaline phosphatase mildly elevated at 170. Troponin is negative. BNP is slightly elevated 276. TSH is within normal limits. I reviewed the 1 view chest x-ray, I see no florid pulmonary edema or infiltrate. 3:10 PM: I spoke with the patient's cellar supervisor Dr. Luis by phone and discussed the case. I voiced my concerns about possible new onset atrial f lutter and inquired about rate control given that he has likely been symptomatic for 3 days at this point. The cellar supervisor did not recommend rate or rhythm control this point and is requesting that we administer 40 mg of IV furosemide, I informed him that we will be admitting the patient to the hospital for further work-up and treatment. Covid testing is negative. I did discuss the case with the hospitalist Dr. Holden Morgan who agrees to admit the patient to the intensive care unit. Last Recorded V/S: Last Vital Signs Temp 36.4 C 11/22/20 13:23 Pulse 130 H 11/22/20 14:22 Resp 20 11/22/20 14:22 BP 143/97 H 11/22/20 14:22 Pulse Ox 99 11/22/20 16:00 - Orders/Labs/Meds Orders: Active Orders 24 hr Category Date Time Status Admission Status [Patient Status] [ADT] Stat ADT 11/22/20 15:11 Active Medication Orders Acetaminophen (Tylenol) 650 mg PO Q4H PRN PRN Reason: Pain (Mild 1-3)/fever Apixaban (Eliquis) 5 mg PO BID SADA Last Admin: 11/22/20 16:51 Dose: 5 mg Documented by: GUANAKITO Dextrose/Water (Dextrose 50% In Water) 50 ml IV ASDIRECTED PRN PRN Reason: Hypoglycemia Docusate Sodium (Colace) 100 mg PO BID PRN PRN Reason: Constipation Furosemide (Lasix) 40 mg IVPUSH TID SADA Glucagon (Glucagen) 1 mg IM ASDIRECTED PRN PRN Reason: Hypoglycemia Amiodarone HCl/Dextrose (Nexterone In Dextrose 150 Mg/100 Ml) 100 mls @ 600 mls/hr IV ONETIME ONE; Protocol Stop: 11/22/20 20:09 Amiodarone HCl/Dextrose (Nexterone In Dextrose 360 Mg/200 Ml) 360 mg in 200 mls @ 33.333 mls/hr IV ASDIRECTED SADA; Protocol Insulin Aspart (Novolog) 0 unit SUBCUT TIDAC SADA; Protocol Last Admin: 11/22/20 17:36 Dose: Not Given Documented by: GUANAKITO Ondansetron HCl (Zofran) 4 mg IVPUSH Q4H PRN PRN Reason: Nausea Sodium Chloride (Saline Flush) 2.5 ml FLUSH ASDIRECTED PRN PRN Reason: Keep Vein Open Labs: Laboratory Tests 11/22/20 11/22/20 11/22/20 Range/Units 13:24 13:24 13:24 WBC 12.23 H (4.0-11.0) K/uL RBC 5.75 (4.50-5.90) M/uL Hgb 12.3 L (13.0-17.0) g/dL Hct 42.2 (38.0-50.0) % MCV 73.4 L (80.0-98.0) fL MCH 21.4 L (27.0-32.0) pg MCHC 29.1 L (31.0-37.0) g/dL RDW Std Deviation 48.7 (28.0-62.0) fl RDW Coeff of Chelsie 19 H (11.0-15.0) % Plt Count 364 (150-400) K/uL MPV 9.30 (7.40-12.00) fL Neut % (Auto) 70.8 (48.0-80.0) % Lymph % (Auto) 17.8 (16.0-40.0) % [place] % (Auto) 9.9 (0.0-15.0) % Eos % (Auto) 1.0 (0.0-7.0) % Baso % (Auto) 0.5 (0.0-1.5) % Neut # (Auto) 8.7 H (1.4-5.7) K/uL Lymph # (Auto) 2.2 (0.6-2.4) K/uL [place] # (Auto) 1.2 H (0.0-0.8) K/uL Eos # (Auto) 0.1 (0.0-0.7) K/uL Baso # (Auto) 0.1 (0.0-0.1) K/uL Nucleated RBC % 0.0 /100WBC Nucleated RBCs # 0 K/uL D-Dimer, Quantitative (0.0-0.50) mg/L FEU VBG pH 7.39 (7.31-7.41) VBG pCO2 44 (35-45) mmHG VBG pO2 26 L (30-40) mmHG VBG HCO3 27 (22-30) mEq/L VBG Total CO2 25 L (41-51) mmol/L VBG Base Excess 1.3 (-3.0-3.0) Sodium 137 (136-148) mmol/L Potassium 3.9 (3.5-5.1) mmol/L Chloride 102 (98-107) mmol/L Carbon Dioxide 26.5 (21.0-32.0) mmol/L BUN 31 H (7.0-18.0) mg/dL Creatinine 1.8 H (0.8-1.3) mg/dL Est Cr Clr Drug Dosing 44.86 mL/min Estimated GFR (MDRD) 39.4 ml/min Glucose 133 H (74-106) mg/dL Calcium 9.1 (8.5-10.1) mg/dL Magnesium 2.3 (1.8-2.4) mg/dL Total Bilirubin 1.0 (0.2-1.0) mg/dL AST 29 (15-37) IU/L ALT 37 (14-63) IU/L Alkaline Phosphatase 170 H (46-116) U/L Troponin I < 0.050 (0.000-0.056) ng/mL B-Natriuretic Peptide (<100) PG/ML Total Protein 7.3 (6.4-8.2) g/dL Albumin 3.2 L (3.4-5.0) g/dL Globulin 4.1 H (2.6-4.0) g/dL Albumin/Globulin Ratio 0.8 L (0.9-1.6) TSH 3rd Generation (0.36-3.74) uIU/mL SARS-CoV-2 RNA (LAURA) (NEGATIVE) 11/22/20 11/22/20 11/22/20 Range/Units 13:24 13:24 13:24 WBC (4.0-11.0) K/uL RBC (4.50-5.90) M/uL Hgb (13.0-17.0) g/dL Hct (38.0-50.0) % MCV (80.0-98.0) fL MCH (27.0-32.0) pg MCHC (31.0-37.0) g/dL RDW Std Deviation (28.0-62.0) fl RDW Coeff of Chelsie (11.0-15.0) % Plt Count (150-400) K/uL MPV (7.40-12.00) fL Neut % (Auto) (48.0-80.0) % Lymph % (Auto) (16.0-40.0) % [place] % (Auto) (0.0-15.0) % Eos % (Auto) (0.0-7.0) % Baso % (Auto) (0.0-1.5) % Neut # (Auto) (1.4-5.7) K/uL Lymph # (Auto) (0.6-2.4) K/uL [place] # (Auto) (0.0-0.8) K/uL Eos # (Auto) (0.0-0.7) K/uL Baso # (Auto) (0.0-0.1) K/uL Nucleated RBC % /100WBC Nucleated RBCs # K/uL D-Dimer, Quantitative 0.75 H (0.0-0.50) mg/L FEU VBG pH (7.31-7.41) VBG pCO2 (35-45) mmHG VBG pO2 (30-40) mmHG VBG HCO3 (22-30) mEq/L VBG Total CO2 (41-51) mmol/L VBG Base Excess (-3.0-3.0) Sodium (136-148) mmol/L Potassium (3.5-5.1) mmol/L Chloride (98-107) mmol/L Carbon Dioxide (21.0-32.0) mmol/L BUN (7.0-18.0) mg/dL Creatinine (0.8-1.3) mg/dL Est Cr Clr Drug Dosing mL/min Estimated GFR (MDRD) ml/min Glucose (74-106) mg/dL Calcium (8.5-10.1) mg/dL Magnesium (1.8-2.4) mg/dL Total Bilirubin (0.2-1.0) mg/dL AST (15-37) IU/L ALT (14-63) IU/L Alkaline Phosphatase (46-116) U/L Troponin I (0.000-0.056) ng/mL B-Natriuretic Peptide 276 H (<100) PG/ML Total Protein (6.4-8.2) g/dL Albumin (3.4-5.0) g/dL Globulin (2.6-4.0) g/dL Albumin/Globulin Ratio (0.9-1.6) [facility] 3rd Generation 3.11 (0.36-3.74) uIU/mL SARS-CoV-2 RNA (LAURA) (NEGATIVE) 11/22/20 Range/Units 14:09 WBC (4.0-11.0) K/uL RBC (4.50-5.90) M/uL Hgb (13.0-17.0) g/dL Hct (38.0-50.0) % MCV (80.0-98.0) fL MCH (27.0-32.0) pg MCHC (31.0-37.0) g/dL RDW Std Deviation (28.0-62.0) fl RDW Coeff of Chelsie (11.0-15.0) % Plt Count (150-400) K/uL MPV (7.40-12.00) fL Neut % (Auto) (48.0-80.0) % Lymph % (Auto) (16.0-40.0) % [place] % (Auto) (0.0-15.0) % Eos % (Auto) (0.0-7.0) % Baso % (Auto) (0.0-1.5) % Neut # (Auto) (1.4-5.7) K/uL Lymph # (Auto) (0.6-2.4) K/uL [place] # (Auto) (0.0-0.8) K/uL Eos # (Auto) (0.0-0.7) K/uL Baso # (Auto) (0.0-0.1) K/uL Nucleated RBC % /100WBC Nucleated RBCs # K/uL D-Dimer, Quantitative (0.0-0.50) mg/L FEU VBG pH (7.31-7.41) VBG pCO2 (35-45) mmHG VBG pO2 (30-40) mmHG VBG HCO3 (22-30) mEq/L VBG Total CO2 (41-51) mmol/L VBG Base Excess (-3.0-3.0) Sodium (136-148) mmol/L Potassium (3.5-5.1) mmol/L Chloride (98-107) mmol/L Carbon Dioxide (21.0-32.0) mmol/L BUN (7.0-18.0) mg/dL Creatinine (0.8-1.3) mg/dL Est Cr Clr Drug Dosing mL/min Estimated GFR (MDRD) ml/min Glucose (74-106) mg/dL Calcium (8.5-10.1) mg/dL Magnesium (1.8-2.4) mg/dL Total Bilirubin (0.2-1.0) mg/dL AST (15-37) IU/L ALT (14-63) IU/L Alkaline Phosphatase (46-116) U/L Troponin I (0.000-0.056) ng/mL B-Natriuretic Peptide (<100) PG/ML Total Protein (6.4-8.2) g/dL Albumin (3.4-5.0) g/dL Globulin (2.6-4.0) g/dL Albumin/Globulin Ratio (0.9-1.6) TSH 3rd Generation (0.36-3.74) uIU/mL SARS-CoV-2 RNA (LAURA) NEGATIVE (NEGATIVE) Meds: Medications Generic Name Dose Route Start Last Admin Trade Name Freq PRN Reason Stop Dose Admin Acetaminophen 650 mg 11/22/20 15:44 Tylenol PO Q4H PRN Pain (Mild 1-3)/fever Apixaban 5 mg 11/22/20 16:45 11/22/20 16:51 Eliquis PO 5 mg BID SADA Administration Dextrose/Water 50 ml 11/22/20 16:19 Dextrose 50% In Water IV ASDIRECTED PRN Hypoglycemia Docusate Sodium 100 mg 11/22/20 15:44 Colace PO BID PRN Constipation Furosemide 40 mg 11/22/20 22:00 Lasix IVPUSH TID SADA Glucagon 1 mg 11/22/20 16:19 Glucagen IM ASDIRECTED PRN Hypoglycemia Amiodarone HCl/Dextrose 100 mls @ 600 mls/hr 11/22/20 20:00 Nexterone In Dextrose 150 Mg/100 Ml IV 11/22/20 20:09 ONETIME ONE Protocol Amiodarone HCl/Dextrose 360 mg in 200 mls @ 33.333 mls/hr 11/22/20 20:10 Nexterone In Dextrose 360 Mg/200 Ml IV ASDIRECTED SADA Protocol 1 MG/MIN Insulin Aspart 0 unit 11/22/20 17:00 11/22/20 17:36 Novolog SUBCUT Not Given TIDAC SADA Protocol Ondansetron HCl 4 mg 11/22/20 15:44 Zofran IVPUSH Q4H PRN Nausea Sodium Chloride 2.5 ml 11/22/20 15:44 Saline Flush FLUSH ASDIRECTED PRN Keep Vein Open Discontinued Medications Generic Name Dose Route Start Last Admin Trade Name Freq PRN Reason Stop Dose Admin Aspirin 324 mg 11/22/20 13:39 11/22/20 13:43 Aspirin PO 11/22/20 13:40 324 mg ONETIME ONE Administration Enoxaparin Sodium 40 mg 11/22/20 15:45 11/22/20 17:39 Lovenox SUBCUT Not Given Q24H [facility] Furosemide 40 mg 11/22/20 15:10 11/22/20 15:18 Lasix IVPUSH 11/22/20 15:11 40 mg NOW ONE Administration Magnesium Sulfate 2 gm/ Premix 50 mls @ 50 mls/hr 11/22/20 13:39 11/22/20 13:43 IV 11/22/20 14:38 50 mls/hr ONETIME ONE Administration Lactated Ringer's 1,000 mls @ 999 mls/hr 11/22/20 13:45 11/22/20 14:00 Ringers, Lactated IV 11/22/20 14:45 999 mls/hr .BOLUS ONE Administration Amiodarone HCl/Dextrose 100 mls @ 600 mls/hr 11/22/20 16:37 11/22/20 17:35 Nexterone In Dextrose 150 Mg/100 Ml IV 11/22/20 16:46 Not Given ONETIME ONE Protocol Amiodarone HCl/Dextrose 360 mg in 200 mls @ 33.333 mls/hr 11/22/20 16:45 Nexterone In Dextrose 360 Mg/200 Ml IV ASDIRECTED SADA Protocol 1 MG/MIN Iopamidol 100 ml 11/22/20 17:26 11/22/20 17:38 Isovue Multipack-370 (76%) IVPUSH 11/22/20 17:27 100 ml ONETIME STA Administration Sodium Chloride 10 ml 11/22/20 13:21 11/22/20 13:49 Saline Flush FLUSH 10 ml ASDIRECTED PRN Administration Keep Vein Open Sodium Chloride 2.5 ml 11/22/20 13:21 11/22/20 13:49 Saline Flush FLUSH 2.5 ml ASDIRECTED PRN Administration Keep Vein Open Departure - Departure Time of Disposition: 15:10 Disposition: Admitted As Inpatient 66 Condition: Good Clinical Impression: Chest pain in adult, Heart failure with reduced ejection fraction Atrial flutter Qualifiers: Atrial flutter type: unspecified Qualified Code(s): I48.92 - Unspecified atrial flutter Sepsis Event Note (ED) - Evaluation Sepsis Screening Result: No Definite Risk - Focused Exam Vital Signs: Vital Signs Temp Pulse Resp BP Pulse Ox 11/22/20 14:22 130 H 20 143/97 H 97 11/22/20 13:23 36.4 C 135 H 16 135/95 H 98 - My Orders Last 24 Hours: My Active Orders 11/22/20 15:11 Admission Status [Patient Status] [ADT] Stat - Assessment/Plan Last 24 Hours: My Active Orders 11/22/20 15:11 Admission Status [Patient Status] [ADT] Stat
[2020-11-22 13:57] LABS: BLOOD UREA NITROGEN,BUN 31 mg/dL (7.0-18.0); CARBON DIOXIDE,CO2 26.5 mmol/L (21.0-32.0); CHLORIDE,CL 102 mmol/L (98-107); GLUCOSE RANDOM 133 mg/dL (74-106); POTASSIUM,K 3.9 mmol/L (3.5-5.1); SODIUM,NA 137 mmol/L (136-148)
--- NOTE | 2020-11-22 14:31 | CR ---
Indication: Dyspnea and tachycardia Comparison: Single view chest September 30, 2020 Technique: Single AP view chest Findings: There is hyperinflation and chronic interstitial change. There is minimal basilar atelectasis versus scar. The cardiac silhouette is mildly prominent, stable from comparison. A pericardial effusion cannot be excluded. The bony thorax is grossly intact. Impression: Hyperinflation and chronic interstitial change with basilar atelectasis versus scar, similar previous exam. Dictated by Kwame Seals MD @ Nov 22 2020 2:15PM Signed by Dr. Kwame Seals @ Nov 22 2020 2:29PM
[2020-11-22] MEDS ORDERED: Furosemide 40 MG/4 ML VIAL IVPUSH ONE (15:10)
[2020-11-22] MEDS ORDERED: Docusate Sodium 100 MG Cap PO PRN (15:44)
[2020-11-22] MEDS ORDERED: Acetaminophen 325 MG Tab PO PRN (15:44)
[2020-11-22] MEDS ORDERED: Ondansetron 4 MG/2 ML SDV IVPUSH PRN (15:44)
[2020-11-22] MEDS ORDERED: Enoxaparin 40 MG/0.4 ML Syringe SUBCUT SCH (15:45)
--- NOTE | 2020-11-22 15:58 | PCM.HP.2 ---
H&P History of Present Illness - General Date of Service: 11/22/20 Admit Problem/Dx: Admission Diagnosis/Problem Admission Diagnosis/Problem Chest pain in adult Source of Information: Patient History Limitations: Reports: No Limitations - History of Present Illness Initial Comments - Free Text/Narative: This 55-year-old male with past medical history of tobacco use, new onset CHF with an EF of 20%, and DM type II presents today to the ER for complaints of shortness of breath. He reports that shortness of breath has started over the last 3 to 4 days and has progressively worsened. He denies any overt chest pain but does feel chest pressure all over his chest. He reports this pressure is present most days and does not change with activity. He has no radiation of t his pressure no nausea vomiting or neck pain. He reports he has been having a headache quite frequently since he was started on losartan and Lasix since previous admission. He was previously admitted for similar symptoms with a BNP elevated at approximately 800 he was admitted and treated with Lasix but left AMA the following day without complete treatment. He has since followed up with Dr. Luis, cardiology, as outpatient. Had an echo which was completed and shows EF of 20%. He was started on Lasix and losartan at home and has been monitoring his diet and lessening salt intake. He reports that he is unable to walk long distances without shortness of breath and is unable to lay flat as he feels as though he is drowning. Denies any overt peripheral edema. He reports he is feeling significantly tired the last couple days and unable to complete his work. 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 He reports he continues to smoke 4 to 5 cigarettes daily, no recreational drug use, and no alcohol use. He reports his father has CAD and had a CABG in his 60s along with having diabetes. He also reports his mother had a history of diabetes. In the ER white count slightly elevated at 12,000, hemoglobin 12.3 platelet count 364,000. BUN 31 creatinine 1.8 which is elevated from baseline. Glucose 133. Alk phos 170 troponin negative BNP slightly elevated at 276. Covid swab n egative. In the ER heart rate was noted to be 130s to 140s possible atrial tachycardia, but EKG appears very regular, consider S Tachy also. Will discuss with Dr Luis. He was given 1 L bolus as well as magnesium. Blood pressures [id number] he was also given full dose aspirin. Dr. Luis was consulted on patient and recommended Lasix administration and admission for further management. Upon chart review Dr. Renae has outpatient plans for ischemic work-up. He will be admitted for decompensated systolic heart failure Chest Pain Score (Numeric/FACES): 7 - Related Data Allergies/Adverse Reactions: Allergies Allergy/AdvReac Type Severity Reaction Status Date / Time No Known Allergies Allergy Verified 11/22/20 16:14 Home Medications: Home Meds Furosemide 40 mg PO DAILY 30 Days #30 tablet 10/01/20 [Rx] Past Medical History - Past Health History Medical/Surgical History: Denies Medical/Surgical History Cardiovascular History: Reports: Heart Failure Respiratory History: Reports: None. Denies: SOB Gastrointestinal History: Reports: None. Denies: GERD, GI Bleed Neurological History: Reports: None Endocrine/Metabolic History: Reports: Diabetes, Type II, Obesity/BMI 30+ - Infectious Disease History Infectious Disease History: Reports: Chicken Pox Social & Family History - Family History Family Medical History: No Pertinent Family History - Tobacco Use Tobacco Use Status *Q: Current Every Day Tobacco User Years of Tobacco use: 40 Packs/Tins Daily: 1 - Caffeine Use Caffeine Use: Reports: None - Alcohol Use Alcohol Use History: No - Recreational Drug Use Recreational Drug Use: No - Living Situation & Occupation Occupation: Employed H&P Review of Systems - Review of Systems: Review Of Systems: See Below General: Reports: Fatigue. Denies: Fever, Chills HEENT: Reports: Headaches (Reports almost constant daily headache since starting new medications but also reports decreasing soda intake). Denies: Sinus Congestion, Sore Throat Pulmonary: Reports: Shortness of Breath Cardiovascular: Reports: Chest Pain (No overt chest pain but does have chest pressure which has been present for many days and was previous we noted on outpatient with Dr. Renae), Dyspnea on Exertion, Orthopnea, Edema. Denies: Lightheadedness Gastrointestinal: Reports: No Symptoms. Denies: Abdominal Pain, Black Stool, Bloody Stool, Decreased Appetite, Nausea, Vomiting Genitourinary: Reports: No Symptoms. Denies: Dysuria, Frequency, Burning Musculoskeletal: Reports: No Symptoms Skin: Reports: No Symptoms Psychiatric: Reports: Anxiety (Reports he feels very anxious about being in the hospital and gets anxiety when he is tied up to machines and monitors) Neurological: Reports: No Symptoms Hematologic/Lymphatic: Reports: No Symptoms Immunologic: Reports: No Symptoms Exam - Exam Exam: See Below - Vital Signs Vital Signs: Last Vital Signs Temp 97.5 F 11/22/20 13:23 Pulse 130 H 11/22/20 14:22 Resp 20 11/22/20 14:22 BP 143/97 H 11/22/20 14:22 Pulse Ox 97 11/22/20 14:22 Weight: 95.254 kg - Exam Quality Assessment: DVT Prophylaxis. No: Supplemental Oxygen General: Alert, Oriented, Cooperative HEENT: Conjunctiva Clear, Mucosa Moist & [place], Posterior Pharynx Clear Neck: Supple, JVD Lungs: Crackles (Bibasilar). No: Normal Respiratory Effort (Dyspnea with exertion and orthopnea noted.) Cardiovascular: Tachycardia. No: Systolic Murmur GI/Abdominal Exam: Normal Bowel Sounds, Soft, Non-Tender Back Exam: Normal Inspection, Full Range of Motion Extremities: Normal Inspection, Normal Range of Motion, Non-Tender, Pedal Edema (+1 pitting edema bilateral lower extremities) Neuro Extensive - Mental Status: Alert, Oriented x3 Neuro Extensive - Motor, Sensory, Reflexes: CN II-XII Intact, Normal Gait, Normal Reflexes Psychiatric: Alert, Normal Affect, Anxious - Patient Data Lab Results Last 24 hrs: Laboratory Results - last 24 hr 11/22/20 11/22/20 11/22/20 Range/Units 13:24 13:24 13:24 WBC 12.23 H (4.0-11.0) K/uL RBC 5.75 (4.50-5.90) M/uL Hgb 12.3 L (13.0-17.0) g/dL Hct 42.2 (38.0-50.0) % MCV 73.4 L (80.0-98.0) fL MCH 21.4 L (27.0-32.0) pg MCHC 29.1 L (31.0-37.0) g/dL RDW Std Deviation 48.7 (28.0-62.0) fl RDW Coeff of Chelsie 19 H (11.0-15.0) % Plt Count 364 (150-400) K/uL MPV 9.30 (7.40-12.00) fL Neut % (Auto) 70.8 (48.0-80.0) % Lymph % (Auto) 17.8 (16.0-40.0) % [place] % (Auto) 9.9 (0.0-15.0) % Eos % (Auto) 1.0 (0.0-7.0) % Baso % (Auto) 0.5 (0.0-1.5) % Neut # (Auto) 8.7 H (1.4-5.7) K/uL Lymph # (Auto) 2.2 (0.6-2.4) K/uL [place] # (Auto) 1.2 H (0.0-0.8) K/uL Eos # (Auto) 0.1 (0.0-0.7) K/uL Baso # (Auto) 0.1 (0.0-0.1) K/uL Nucleated RBC % 0.0 /100WBC Nucleated RBCs # 0 K/uL VBG pH 7.39 (7.31-7.41) VBG pCO2 44 (35-45) mmHG VBG pO2 26 L (30-40) mmHG VBG HCO3 27 (22-30) mEq/L VBG Total CO2 25 L (41-51) mmol/L VBG Base Excess 1.3 (-3.0-3.0) Sodium 137 (136-148) mmol/L Potassium 3.9 (3.5-5.1) mmol/L Chloride 102 (98-107) mmol/L Carbon Dioxide 26.5 (21.0-32.0) mmol/L BUN 31 H (7.0-18.0) mg/dL Creatinine 1.8 H (0.8-1.3) mg/dL Est Cr Clr Drug Dosing 44.86 mL/min Estimated GFR (MDRD) 39.4 ml/min Glucose 133 H (74-106) mg/dL Calcium 9.1 (8.5-10.1) mg/dL Magnesium 2.3 (1.8-2.4) mg/dL Total Bilirubin 1.0 (0.2-1.0) mg/dL AST 29 (15-37) IU/L ALT 37 (14-63) IU/L Alkaline Phosphatase 170 H (46-116) U/L Troponin I < 0.050 (0.000-0.056) ng/mL B-Natriuretic Peptide (<100) PG/ML Total Protein 7.3 (6.4-8.2) g/dL Albumin 3.2 L (3.4-5.0) g/dL Globulin 4.1 H (2.6-4.0) g/dL Albumin/Globulin Ratio 0.8 L (0.9-1.6) TSH 3rd Generation (0.36-3.74) uIU/mL SARS-CoV-2 RNA (LAURA) (NEGATIVE) 11/22/20 11/22/20 11/22/20 Range/Units 13:24 13:24 14:09 WBC (4.0-11.0) K/uL RBC (4.50-5.90) M/uL Hgb (13.0-17.0) g/dL Hct (38.0-50.0) % MCV (80.0-98.0) fL MCH (27.0-32.0) pg MCHC (31.0-37.0) g/dL RDW Std Deviation (28.0-62.0) fl RDW Coeff of Chelsie (11.0-15.0) % Plt Count (150-400) K/uL MPV (7.40-12.00) fL Neut % (Auto) (48.0-80.0) % Lymph % (Auto) (16.0-40.0) % [place] % (Auto) (0.0-15.0) % Eos % (Auto) (0.0-7.0) % Baso % (Auto) (0.0-1.5) % Neut # (Auto) (1.4-5.7) K/uL Lymph # (Auto) (0.6-2.4) K/uL [place] # (Auto) (0.0-0.8) K/uL Eos # (Auto) (0.0-0.7) K/uL Baso # (Auto) (0.0-0.1) K/uL Nucleated RBC % /100WBC Nucleated RBCs # K/uL VBG pH (7.31-7.41) VBG pCO2 (35-45) mmHG VBG pO2 (30-40) mmHG VBG HCO3 (22-30) mEq/L VBG Total CO2 (41-51) mmol/L VBG Base Excess (-3.0-3.0) Sodium (136-148) mmol/L Potassium (3.5-5.1) mmol/L Chloride (98-107) mmol/L Carbon Dioxide (21.0-32.0) mmol/L BUN (7.0-18.0) mg/dL Creatinine (0.8-1.3) mg/dL Est Cr Clr Drug Dosing mL/min Estimated GFR (MDRD) ml/min Glucose (74-106) mg/dL Calcium (8.5-10.1) mg/dL Magnesium (1.8-2.4) mg/dL Total Bilirubin (0.2-1.0) mg/dL AST (15-37) IU/L ALT (14-63) IU/L Alkaline Phosphatase (46-116) U/L Troponin I (0.000-0.056) ng/mL B-Natriuretic Peptide 276 H (<100) PG/ML Total Protein (6.4-8.2) g/dL Albumin (3.4-5.0) g/dL Globulin (2.6-4.0) g/dL Albumin/Globulin Ratio (0.9-1.6) TSH 3rd Generation 3.11 (0.36-3.74) uIU/mL SARS-CoV-2 RNA (LAURA) NEGATIVE (NEGATIVE) Result Diagrams: 11/22/20 13:24 11/22/20 13:24 Sepsis Event Note - Evaluation Sepsis Screening Result: No Definite Risk - Focused Exam Vital Signs: Vital Signs Temp Pulse Resp BP Pulse Ox 11/22/20 14:22 130 H 20 143/97 H 97 11/22/20 13:23 97.5 F 135 H 16 135/95 H 98 - Problem List (1) Heart failure with reduced ejection fraction SNOMED Code(s): 698341683 ICD Code: I50.20 - UNSPECIFIED SYSTOLIC (CONGESTIVE) HEART FAILURE Status: Acute Current Visit: Yes (2) Diabetes mellitus SNOMED Code(s): 26779729 ICD Code: E11.9 - TYPE 2 DIABETES MELLITUS WITHOUT COMPLICATIONS Status: Chronic Current Visit: No Qualifiers: Diabetes mellitus type: type 2 Diabetes mellitus long term care social worker insulin use: without residential use Diabetes mellitus complication status: without complication Qualified Code(s): E11.9 - Type 2 diabetes mellitus without complications (3) HTN (hypertension) SNOMED Code(s): 02930951 ICD Code: I10 - ESSENTIAL (PRIMARY) HYPERTENSION Status: Chronic Current Visit: No Qualifiers: Hypertension type: essential hypertension Qualified Code(s): I10 - Essential (primary) hypertension Problem List Initiated/Reviewed/Updated: Yes Orders Last 24hrs: Active Orders 24 hr Category Date Time Status Admission Status [Patient Status] [ADT] Stat ADT 11/22/20 15:11 Active Blood Glucose Check, Bedside [RC] TIDMEALS Care 11/22/20 15:44 Ordered Cardiac Monitoring [RC] . DIRECTED Care 11/22/20 15:47 Ordered Height and Weight [RC] DAILY Care 11/22/20 15:44 Ordered Intake and Output Strict [RC] ASDIRECTED Care 11/22/20 15:47 Ordered Oxygen Therapy [RC] PRN Care 11/22/20 15:44 Ordered Up With Assistance [RC] ASDIRECTED Care 11/22/20 15:44 Ordered VTE/DVT Education [RC] PER UNIT ROUTINE Care 11/22/20 15:44 Ordered Vital Signs [RC] Q1H Care 11/22/20 15:44 Ordered 2 Gram Sodium Diet [DIET] Diet 11/22/20 Dinner Active BASIC METABOLIC PANEL,BMP [CHEM] AM Lab 11/25/20 05:11 Ordered BASIC METABOLIC PANEL,BMP [CHEM] AM Lab 11/26/20 05:11 Ordered BASIC METABOLIC PANEL,BMP [CHEM] AM Lab 11/23/20 05:11 Ordered BASIC METABOLIC PANEL,BMP [CHEM] AM Lab 11/24/20 05:11 Ordered CBC WITH AUTO DIFF [HEME] AM Lab 11/25/20 05:11 Ordered CBC WITH AUTO DIFF [HEME] AM Lab 11/26/20 05:11 Ordered CBC WITH AUTO DIFF [HEME] AM Lab 11/23/20 05:11 Ordered CBC WITH AUTO DIFF [HEME] AM Lab 11/24/20 05:11 Ordered D-DIMER QUANTITATIVE [COAG] Stat Lab 11/22/20 13:24 Received MAGNESIUM [CHEM] AM Lab 11/25/20 05:11 Ordered MAGNESIUM [CHEM] AM Lab 11/26/20 05:11 Ordered MAGNESIUM [CHEM] AM Lab 11/23/20 05:11 Ordered MAGNESIUM [CHEM] AM Lab 11/24/20 05:11 Ordered TROPONIN I [CHEM] Routine Lab 11/22/20 16:24 Ordered Acetaminophen [TylenoL] Med 11/22/20 15:44 Ordered 650 mg PO Q4H PRN Docusate Sodium [Colace] Med 11/22/20 15:44 Ordered 100 mg PO BID PRN Enoxaparin [Lovenox] Med 11/22/20 15:45 Ordered 40 mg SUBCUT Q24H Furosemide [Lasix] Med 11/22/20 22:00 Ordered 40 mg IVPUSH TID Ondansetron [Zofran] Med 11/22/20 15:44 Ordered 4 mg IVPUSH Q4H PRN Sodium Chloride 0.9% [Saline Flush] Med 11/22/20 15:44 Ordered 2.5 ml FLUSH ASDIRECTED PRN Saline Lock Insert [OM.PC] Routine Oth 11/22/20 15:44 Ordered Resuscitation Status Routine Resus Stat 11/22/20 15:44 Ordered Medication Orders Acetaminophen (Tylenol) 650 mg PO Q4H PRN PRN Reason: Pain (Mild 1-3)/fever Docusate Sodium (Colace) 100 mg PO BID PRN PRN Reason: Constipation Enoxaparin Sodium (Lovenox) 40 mg SUBCUT Q24H SADA Furosemide (Lasix) 40 mg IVPUSH TID SADA Ondansetron HCl (Zofran) 4 mg IVPUSH Q4H PRN PRN Reason: Nausea Sodium Chloride (Saline Flush) 2.5 ml FLUSH ASDIRECTED PRN PRN Reason: Keep Vein Open Assessment/Plan Comment:: This 55-year-old male admitted with acute decompensated systolic heart failure 1. 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 Luis. Currently he is wanting diuresis vs rate controlling medications. -Recent echo completed November 14, 2020 -D-dimer slightly elevated at 0.75. Will add on CTA of chest to rule out PE. - Continue losartan 2. DM type II -Monitor blood sugars 3 times daily AC -NovoLog sliding scale VTE prophylaxis: Lovenox CODE STATUS: CPR only patient requests no intubation but is agreeable to medications and compressions if needed. Dispo: 2 to 3 days pending improvement. - Mortality Measure Prognosis:: Good
[2020-11-22] MEDS ORDERED: 50% Dextrose in Water 50 ML Syringe IV PRN (16:19)
[2020-11-22] MEDS ORDERED: Glucagon,Human Recombinant 1 MG Vial IM PRN (16:19)
[2020-11-22] MEDS ORDERED: Apixaban 5 MG Tab PO SCH (16:45)
[2020-11-22] MEDS ORDERED: Iopamidol 755 MG/ML 500 ML Multipack Bottle IVPUSH STA (17:26)
[2020-11-22] MEDS: Insulin Aspart 100 Units/ML 3 ML Pen SUBCUT SCH (17:36)
--- NOTE | 2020-11-22 18:08 | PN ---
[facility] Physician - Brief Progress [id number]/29/2020 17:47[facility] Gerardo Gage, [place] - LESVIA (DONNA) - LESVIA MEGAN DOVERDate of Service 11/22/2020 17:47HPI/Event s of Note eICU admission [id number] male with past history significant for CHF and DM 2 presente d to hospital with shortness of breath. Patient mention progressively worsening shortness of breath over the last 4 days with associated chest pressure. Of note, patient was recently admitted to the [facility] and was found to have new onset CHF with EF of 20% and was discharged home on losartan as wel l as Lasix. On presentation to the ED patient was noted to be tachycardic up to 130s with otherwise stable vitals. Initial lab work-up did reveal [place] at 1.8, slightly elevated BNP at 276 as well as el evated troponin at 170. EKG was done which showed A. fib with RVR. In the ED patient received 1 L IV fluid bolus, Lasix 40 as well as amiodarone bolus and gtt. and subsequently admitted to the ICU for closer monitoring.Patient seen on camera, sitting at the side of the bed and does not appear to be in acute distress at this time and able to converse in complete senses.Vital signs reviewed. HR 130, S PO2 95%Lab/EMR reviewedA. fib with RVR-Recommend continued trend of troponin-We will defer recommenda tions to cardiology as they have been consulted. Patient remains on amiodarone gtt.-Anticoagulation initiated with Eliquis-Recommend replacing electrolytes to keep MG > 2 and K > 4-If AV casey jimmy is needed to control RVR can consider esmolol as AV casey jimmy of choice given EF of 20%.CHF exace rbation-Unclear exacerbating factor as patient seems compliant to medications per EMR.-Agree with diu resis with close eye on electrolytes. -Strict I's and O's along with daily weights. Continue to brian nd creatinine as patient likely has cardiorenal syndrome.-Recommend fluid restriction to 1 L daily.-G iven hypoxic respiratory failure agree with ruling out COVID. PPE and isolation per institution polic y.Thank you for allowing us to participate in the care of this patient.Interventions Major-Arrhythmia - evaluation and management, Other: CHF
--- NOTE | 2020-11-22 18:16 | CT ---
Indication: Chest pain, elevated D-dimer Technique: Volumetric multidetector CT images of the chest were obtained after the administration of IV contrast. 100 cc Isovue 370 Comparison: Single view chest November 22, 2020 Findings: The thoracic inlet and thyroid gland are unremarkable. The thoracic aorta is nonaneurysmal. There is demonstration of a filling defect within the right apical subsegmental pulmonary arteries. Otherwise, the pulmonary arteries are patent. There are multiple reactive mediastinal and hilar lymph nodes. There is moderate central bronchial thickening with mucoid impaction within the lower lobe bronchi. There is dependent bibasilar atelectasis versus scar with diffuse air-trapping seen throughout the bilateral hemithoraces. There is no evidence of pulmonary mass or suspicious pulmonary nodule. There is moderate hepatomegaly appreciated in the partially visualized upper abdomen. The thoracic vertebral body heights are grossly maintained with diffuse lying anterior osteophytes. There is no significant spondylolisthesis or displaced fracture. There is moderate prominence of the cardiac chambers which may represent a component of cardiac failure. Impression: Demonstration of a small pulmonary embolus within the right upper lobe subsegmental pulmonary arteries. No large, central emboli are appreciated. Otherwise, diffuse bronchial thickening and reactive lymph nodes are appreciated. Moderate prominence of the cardiac chambers which may relate to a component of heart failure. Findings discussed with Dr. Patton at 6:08 p.m. 11/22/[address] note that all CT scans at this facility use dose modulation, iterative reconstruction, and/or weight-based dosing when appropriate to reduce radiation dose to as low as reasonably achievable. Dictated by Kwame Seals MD @ Nov 22 2020 5:40PM Signed by Dr. Kwame Seals @ Nov 22 2020 6:16PM
[2020-11-22] MEDS ORDERED: Apixaban 5 MG Tab PO ONE (18:30)
[2020-11-22] MEDS: Digoxin 500 MCG/2 ML Amp IVPUSH SCH ×4 (19:32→22:40)
[2020-11-22] MEDS ORDERED: Metoprolol Succinate 25 MG Tab.ER PO SCH (21:00)
[2020-11-22] MEDS: Furosemide 40 MG/4 ML VIAL IVPUSH SCH (21:56)
[2020-11-22] MEDS ORDERED: Benzonatate 100 MG Cap PO PRN (23:29)
[2020-11-23] MEDS ORDERED: guaiFENesin 100 MG/5 ML Soln 5 ML UD Cup PO PRN (02:55)
--- NOTE | 2020-11-23 02:57 | PN ---
[facility] Physician - Brief Progress [id number]/30/2020 02:[address] aditiGerardo, ALONSO - LESVIA (DONNA) - MEGAN NORIEGADate of Service 11/23/2020 02:56HPI/Event s of Note Robitussin ordered for cough as tessalon was not effectiveInterventions Minor-Routine modif ications to care plan (e.g. PRN medications for pain, fever)
[2020-11-23] MEDS ORDERED: Melatonin 3 MG Tab PO SCH (03:00)
--- NOTE | 2020-11-23 03:04 | PN ---
[facility] Physician - Brief Progress [id number]/30/2020 03:03[facility] Gerardo Gage [place] - LESVIA (DONNA) - MEGAN NORIEGADate of Service 11/23/2020 03:03HPI/Event s of Note Also ordered melatonin for insomniaInterventions Minor-Routine modifications to care plan ( e.g. PRN medications for pain, fever)
[2020-11-23] MEDS ORDERED: ALPRAZolam 0.5 MG Tab PO ONE (04:43)
--- NOTE | 2020-11-23 05:03 | PN ---
[facility] Physician - Brief Progress [id number]/30/2020 04:45[facility] aditi [place], ALONSO - LESVIA (DONNA) - MEGAN NORIEGA.Date of Service 11/23/2020 04:45HPI/Event s of Note Anxiety - Is on room air, o2 sat 99Fully awake and alertWill try xanaxNo distress and sitti ng in a chair, on cameraD/W RNInterventions Major-Delirium, psychosis, severe agitation - evaluation and management
--- NOTE | 2020-11-23 07:58 | PCM.PN ---
- General Info Date of Service: 11/23/20 Admission Dx/Problem (Free Text): Admission Diagnosis/Problem Admission Diagnosis/Problem Aflutter, decompensated systolic CHF Subjective Update: Patient agitated this morning. Had conversation with Dr. Renae regarding recommende d treatment and he agreed to stay. Denies any chest pain reports shortness of breath is about the same. Continues to have intermittent palpitations. He reports he is very fatigued this he did not sleep well overnight. Functional Status: Reports: Pain Controlled, Tolerating Diet, Ambulating, Urinating - Review of Systems General: Reports: Fatigue HEENT: Reports: No Symptoms. Denies: Headaches, Sore Throat, Rhinitis Pulmonary: Reports: Shortness of Breath. Denies: Cough, Sputum Cardiovascular: Reports: Dyspnea on Exertion, Orthopnea, Edema Gastrointestinal: Reports: No Symptoms. Denies: Abdominal Pain, Nausea, Vomiting Genitourinary: Reports: No Symptoms. Denies: Dysuria, Frequency, Burning Musculoskeletal: Reports: No Symptoms Skin: Reports: No Symptoms Neurological: Reports: No Symptoms Psychiatric: Reports: No Symptoms - Patient Data Vitals - Most Recent: Last Vital Signs Temp 98.2 F 11/23/20 05:00 Pulse 130 H 11/22/20 22:40 Resp 20 11/23/20 06:00 BP 132/87 11/23/20 05:00 Pulse Ox 97 11/23/20 06:00 Weight - Most Recent: 96.615 kg I&O - Last 24 Hours: Intake & Output 11/22/20 11/23/20 11/23/20 22:59 06:59 14:59 Intake Total 900 Output Total 700 840 Balance -700 60 Lab Results Last 24 Hours: Laboratory Results - last 24 hr 11/22/20 11/22/20 11/22/20 Range/Units 13:24 13:24 13:24 WBC 12.23 H (4.0-11.0) K/uL RBC 5.75 (4.50-5.90) M/uL Hgb 12.3 L (13.0-17.0) g/dL Hct 42.2 (38.0-50.0) % MCV 73.4 L (80.0-98.0) fL MCH 21.4 L (27.0-32.0) pg MCHC 29.1 L (31.0-37.0) g/dL RDW Std Deviation 48.7 (28.0-62.0) fl RDW Coeff of Chelsie 19 H (11.0-15.0) % Plt Count 364 (150-400) K/uL MPV 9.30 (7.40-12.00) fL Neut % (Auto) 70.8 (48.0-80.0) % Lymph % (Auto) 17.8 (16.0-40.0) % [place] % (Auto) 9.9 (0.0-15.0) % Eos % (Auto) 1.0 (0.0-7.0) % Baso % (Auto) 0.5 (0.0-1.5) % Neut # (Auto) 8.7 H (1.4-5.7) K/uL Lymph # (Auto) 2.2 (0.6-2.4) K/uL [place] # (Auto) 1.2 H (0.0-0.8) K/uL Eos # (Auto) 0.1 (0.0-0.7) K/uL Baso # (Auto) 0.1 (0.0-0.1) K/uL Nucleated RBC % 0.0 /100WBC Nucleated RBCs # 0 K/uL D-Dimer, Quantitative (0.0-0.50) mg/L FEU VBG pH 7.39 (7.31-7.41) VBG pCO2 44 (35-45) mmHG VBG pO2 26 L (30-40) mmHG VBG HCO3 27 (22-30) mEq/L VBG Total CO2 25 L (41-51) mmol/L VBG Base Excess 1.3 (-3.0-3.0) Sodium 137 (136-148) mmol/L Potassium 3.9 (3.5-5.1) mmol/L Chloride 102 (98-107) mmol/L Carbon Dioxide 26.5 (21.0-32.0) mmol/L BUN 31 H (7.0-18.0) mg/dL Creatinine 1.8 H (0.8-1.3) mg/dL Est Cr Clr Drug Dosing 44.86 mL/min Estimated GFR (MDRD) 39.4 ml/min Glucose 133 H (74-106) mg/dL POC Glucose (60-110) mg/dL Calcium 9.1 (8.5-10.1) mg/dL Magnesium 2.3 (1.8-2.4) mg/dL Total Bilirubin 1.0 (0.2-1.0) mg/dL AST 29 (15-37) IU/L ALT 37 (14-63) IU/L Alkaline Phosphatase 170 H (46-116) U/L Troponin I < 0.050 (0.000-0.056) ng/mL B-Natriuretic Peptide (<100) PG/ML Total Protein 7.3 (6.4-8.2) g/dL Albumin 3.2 L (3.4-5.0) g/dL Globulin 4.1 H (2.6-4.0) g/dL Albumin/Globulin Ratio 0.8 L (0.9-1.6) TSH 3rd Generation (0.36-3.74) uIU/mL SARS-CoV-2 RNA (LAURA) (NEGATIVE) 11/22/20 11/22/20 11/22/20 Range/Units 13:24 13:24 13:24 WBC (4.0-11.0) K/uL RBC (4.50-5.90) M/uL Hgb (13.0-17.0) g/dL Hct (38.0-50.0) % MCV (80.0-98.0) fL MCH (27.0-32.0) pg MCHC (31.0-37.0) g/dL RDW Std Deviation (28.0-62.0) fl RDW Coeff of Chelsie (11.0-15.0) % Plt Count (150-400) K/uL MPV (7.40-12.00) fL Neut % (Auto) (48.0-80.0) % Lymph % (Auto) (16.0-40.0) % [place] % (Auto) (0.0-15.0) % Eos % (Auto) (0.0-7.0) % Baso % (Auto) (0.0-1.5) % Neut # (Auto) (1.4-5.7) K/uL Lymph # (Auto) (0.6-2.4) K/uL [place] # (Auto) (0.0-0.8) K/uL Eos # (Auto) (0.0-0.7) K/uL Baso # (Auto) (0.0-0.1) K/uL Nucleated RBC % /100WBC Nucleated RBCs # K/uL D-Dimer, Quantitative 0.75 H (0.0-0.50) mg/L FEU VBG pH (7.31-7.41) VBG pCO2 (35-45) mmHG VBG pO2 (30-40) mmHG VBG HCO3 (22-30) mEq/L VBG Total CO2 (41-51) mmol/L VBG Base Excess (-3.0-3.0) Sodium (136-148) mmol/L Potassium (3.5-5.1) mmol/L Chloride (98-107) mmol/L Carbon Dioxide (21.0-32.0) mmol/L BUN (7.0-18.0) mg/dL Creatinine (0.8-1.3) mg/dL Est Cr Clr Drug Dosing mL/min Estimated GFR (MDRD) ml/min Glucose (74-106) mg/dL POC Glucose (60-110) mg/dL Calcium (8.5-10.1) mg/dL Magnesium (1.8-2.4) mg/dL Total Bilirubin (0.2-1.0) mg/dL AST (15-37) IU/L ALT (14-63) IU/L Alkaline Phosphatase (46-116) U/L Troponin I (0.000-0.056) ng/mL B-Natriuretic Peptide 276 H (<100) PG/ML Total Protein (6.4-8.2) g/dL Albumin (3.4-5.0) g/dL Globulin (2.6-4.0) g/dL Albumin/Globulin Ratio (0.9-1.6) TSH 3rd Generation 3.11 (0.36-3.74) uIU/mL SARS-CoV-2 RNA (LAURA) (NEGATIVE) 11/22/20 11/22/20 11/22/20 Range/Units 14:09 16:35 17:25 WBC (4.0-11.0) K/uL RBC (4.50-5.90) M/uL Hgb (13.0-17.0) g/dL Hct (38.0-50.0) % MCV (80.0-98.0) fL MCH (27.0-32.0) pg MCHC (31.0-37.0) g/dL RDW Std Deviation (28.0-62.0) fl RDW Coeff of Chelsie (11.0-15.0) % Plt Count (150-400) K/uL MPV (7.40-12.00) fL Neut % (Auto) (48.0-80.0) % Lymph % (Auto) (16.0-40.0) % [place] % (Auto) (0.0-15.0) % Eos % (Auto) (0.0-7.0) % Baso % (Auto) (0.0-1.5) % Neut # (Auto) (1.4-5.7) K/uL Lymph # (Auto) (0.6-2.4) K/uL [place] # (Auto) (0.0-0.8) K/uL Eos # (Auto) (0.0-0.7) K/uL Baso # (Auto) (0.0-0.1) K/uL Nucleated RBC % /100WBC Nucleated RBCs # K/uL D-Dimer, Quantitative (0.0-0.50) mg/L FEU VBG pH (7.31-7.41) VBG pCO2 (35-45) mmHG VBG pO2 (30-40) mmHG VBG HCO3 (22-30) mEq/L VBG Total CO2 (41-51) mmol/L VBG Base Excess (-3.0-3.0) Sodium (136-148) mmol/L Potassium (3.5-5.1) mmol/L Chloride (98-107) mmol/L Carbon Dioxide (21.0-32.0) mmol/L BUN (7.0-18.0) mg/dL Creatinine (0.8-1.3) mg/dL Est Cr Clr Drug Dosing mL/min Estimated GFR (MDRD) ml/min Glucose (74-106) mg/dL POC Glucose 115 H (60-110) mg/dL Calcium (8.5-10.1) mg/dL Magnesium (1.8-2.4) mg/dL Total Bilirubin (0.2-1.0) mg/dL AST (15-37) IU/L ALT (14-63) IU/L Alkaline Phosphatase (46-116) U/L Troponin I 0.050 (0.000-0.056) ng/mL B-Natriuretic Peptide (<100) PG/ML Total Protein (6.4-8.2) g/dL Albumin (3.4-5.0) g/dL Globulin (2.6-4.0) g/dL Albumin/Globulin Ratio (0.9-1.6) TSH 3rd Generation (0.36-3.74) uIU/mL SARS-CoV-2 RNA (LAURA) NEGATIVE (NEGATIVE) Med Orders - Current: Current Medications Acetaminophen (Tylenol) 650 mg PO Q4H PRN PRN Reason: Pain (Mild 1-3)/fever Apixaban (Eliquis) 10 mg PO Q12H SADA Benzonatate (Tessalon Perles) 100 mg PO Q6H PRN PRN Reason: Cough Last Admin: 11/22/20 23:35 Dose: 100 mg Documented by: Dextrose/Water (Dextrose 50% In Water) 50 ml IV ASDIRECTED PRN PRN Reason: Hypoglycemia Docusate Sodium (Colace) 100 mg PO BID PRN PRN Reason: Constipation Furosemide (Lasix) 40 mg IVPUSH TID [facility] Last Admin: 11/22/20 21:56 Dose: 40 mg Documented by: Glucagon (Glucagen) 1 mg IM ASDIRECTED PRN PRN Reason: Hypoglycemia Guaifenesin (Robitussin) 100 mg PO Q6H PRN PRN Reason: Cough Last Admin: 11/23/20 03:07 Dose: 100 mg Documented by: Insulin Aspart (Novolog) 0 unit SUBCUT TIDAC [facility]; Protocol Last Admin: 11/22/20 17:36 Dose: Not Given Documented by: Metoprolol Succinate (Toprol Xl) 25 mg PO BEDTIME [facility] Last Admin: 11/22/20 20:59 Dose: 25 mg Documented by: Ondansetron HCl (Zofran) 4 mg IVPUSH Q4H PRN PRN Reason: Nausea Sodium Chloride (Saline Flush) 2.5 ml FLUSH ASDIRECTED PRN PRN Reason: Keep Vein Open Discontinued Medications Alprazolam (Xanax) 0.5 mg PO NOW ONE Stop: 11/23/20 04:44 Last Admin: 11/23/20 04:47 Dose: 0.5 mg Documented by: Apixaban (Eliquis) 5 mg PO BID [facility] Last Admin: 11/22/20 16:51 Dose: 5 mg Documented by: Apixaban (Eliquis) 5 mg PO ONETIME ONE Stop: 11/22/20 18:31 Last Admin: 11/22/20 19:00 Dose: 5 mg Documented by: Aspirin (Aspirin) 324 mg PO ONETIME ONE Stop: 11/22/20 13:40 Last Admin: 11/22/20 13:43 Dose: 324 mg Documented by: Digoxin (Lanoxin) 250 mcg IVPUSH Q2H SADA Stop: 11/22/20 21:16 Last Admin: 11/22/20 22:40 Dose: 250 mcg Documented by: Enoxaparin Sodium (Lovenox) 40 mg SUBCUT Q24H [facility] Last Admin: 11/22/20 17:39 Dose: Not Given Documented by: Furosemide (Lasix) 40 mg IVPUSH NOW ONE Stop: 11/22/20 15:11 Last Admin: 11/22/20 15:18 Dose: 40 mg Documented by: Magnesium Sulfate 2 gm/ Premix 50 mls @ 50 mls/hr IV ONETIME ONE Stop: 11/22/20 14:38 Last Admin: 11/22/20 13:43 Dose: 50 mls/hr Documented by: Lactated Ringer's (Ringers, Lactated) 1,000 mls @ 999 mls/hr IV .BOLUS ONE Stop: 11/22/20 14:45 Last Admin: 11/22/20 14:00 Dose: 999 mls/hr Documented by: Amiodarone HCl/Dextrose (Nexterone In Dextrose 150 Mg/100 Ml) 100 mls @ 600 mls/hr IV ONETIME ONE; Protocol Stop: 11/22/20 16:46 Last Admin: 11/22/20 17:35 Dose: Not Given Documented by: Amiodarone HCl/Dextrose (Nexterone In Dextrose 360 Mg/200 Ml) 360 mg in 200 mls @ 33.333 mls/hr IV ASDIRECTED [facility]; Protocol Amiodarone HCl/Dextrose (Nexterone In Dextrose 150 Mg/100 Ml) 100 mls @ 600 mls/hr IV ONETIME ONE; Protocol Stop: 11/22/20 20:09 Amiodarone HCl/Dextrose (Nexterone In Dextrose 360 Mg/200 Ml) 360 mg in 200 mls @ 33.333 mls/hr IV ASDIRECTED SADA; Protocol Iopamidol (Isovue Multipack-370 (76%)) 100 ml IVPUSH ONETIME STA Stop: 11/22/20 17:27 Last Admin: 11/22/20 17:38 Dose: 100 ml Documented by: Melatonin (Melatonin) 3 mg PO BEDTIME SADA Stop: 11/23/20 03:01 Last Admin: 11/23/20 03:07 Dose: 3 mg Documented by: Sodium Chloride (Saline Flush) 10 ml FLUSH ASDIRECTED PRN PRN Reason: Keep Vein Open Last Admin: 11/22/20 13:49 Dose: 10 ml Documented by: Sodium Chloride (Saline Flush) 2.5 ml FLUSH ASDIRECTED PRN PRN Reason: Keep Vein Open Last Admin: 11/22/20 13:49 Dose: 2.5 ml Documented by: - Exam General: Alert, Oriented, No Acute Distress. No: Cooperative Lungs: Decreased Breath Sounds, Crackles (Bibasilar) Cardiovascular: Irregular Rhythm, Tachycardia GI/Abdominal Exam: Normal Bowel Sounds, Soft, Non-Tender Extremities: Normal Inspection, Normal Range of Motion, Non-Tender, Pedal Edema (+1 pitting edema bilateral lower extremities) Neurological: No New Focal Deficit Psy/Mental Status: Alert, Normal Affect, Normal Mood Sepsis Event Note - Evaluation Sepsis Screening Result: Sepsis Risk - Focused Exam Vital Signs: Vital Signs Temp Pulse Resp BP BP Pulse Ox 11/23/20 06:00 20 97 11/23/20 05:00 98.2 F 22 H 132/87 98 11/23/20 04:00 22 H 97 11/23/20 03:00 18 99 11/23/20 02:00 16 96 11/23/20 01:00 18 94 L 11/23/20 00:00 20 96 11/22/20 23:00 20 96 11/22/20 22:40 130 H 11/22/20 22:00 19 127/80 98 11/22/20 21:00 97.7 F 22 H 137/97 H 96 11/22/20 20:59 132 H 137/97 H 11/22/20 20:36 122 H - Problem List & Annotations (1) Heart failure with reduced ejection fraction SNOMED Code(s): 292911279 Code(s): I50.20 - UNSPECIFIED SYSTOLIC (CONGESTIVE) HEART FAILURE Status: Acute Current Visit: Yes (2) Diabetes mellitus SNOMED Code(s): 12995313 Code(s): E11.9 - TYPE 2 DIABETES MELLITUS WITHOUT COMPLICATIONS Status: Chronic Current Visit: No Qualifiers: Diabetes mellitus type: type 2 Diabetes mellitus emt intermediate insulin use: without long-term use Diabetes mellitus complication status: without complication Qualified Code(s): E11.9 - Type 2 diabetes mellitus without complications (3) HTN (hypertension) SNOMED Code(s): 67227722 Code(s): I10 - ESSENTIAL (PRIMARY) HYPERTENSION Status: Chronic Current Visit: No Qualifiers: Hypertension type: essential hypertension Qualified Code(s): I10 - Essential (primary) hypertension (4) Atrial flutter SNOMED Code(s): 5082969 Code(s): I48.92 - UNSPECIFIED ATRIAL FLUTTER Status: Acute Current Visit: Yes Qualifiers: Atrial flutter type: unspecified Qualified Code(s): I48.92 - Unspecified atrial flutter - Problem List Review Problem List Initiated/Reviewed/Updated: Yes - My Orders Last 24 Hours: My Active Orders 11/22/20 15:44 Blood Glucose Check, Bedside [RC] TIDMEALS Height and Weight [RC] DAILY Oxygen Therapy [RC] PRN Up With Assistance [RC] ASDIRECTED VTE/DVT Education [RC] PER UNIT ROUTINE Vital Signs [RC] Q1H Acetaminophen [TylenoL] 650 mg PO Q4H PRN Docusate Sodium [Colace] 100 mg PO BID PRN Ondansetron [Zofran] 4 mg IVPUSH Q4H PRN Sodium Chloride 0.9% [Saline Flush] 2.5 ml FLUSH ASDIRECTED PRN Saline Lock Insert [OM.PC] Routine Resuscitation Status Routine 11/22/20 15:47 Cardiac Monitoring [RC] Q8H Intake and Output Strict [RC] Q12H 11/22/20 Dinner 2 Gram Sodium Diet [DIET] 11/22/20 16:19 Dextrose 50% in Water 50 ml IV ASDIRECTED PRN Glucagon,Human Recombinant [GlucaGen] 1 mg IM ASDIRECTED PRN 11/22/20 16:41 Communication Order [RC] ROUTINE 11/22/20 17:00 Insulin Aspart [NovoLOG] See Protocol SUBCUT TIDAC 11/22/20 22:00 Furosemide [Lasix] 40 mg IVPUSH TID 11/23/20 05:11 BASIC METABOLIC PANEL,BMP [CHEM] AM CBC WITH AUTO DIFF [HEME] AM LIPID PANEL [CHEM] AM MAGNESIUM [CHEM] AM 11/24/20 05:11 BASIC METABOLIC PANEL,BMP [CHEM] AM CBC WITH AUTO DIFF [HEME] AM MAGNESIUM [CHEM] AM 11/25/20 05:11 BASIC METABOLIC PANEL,BMP [CHEM] AM CBC WITH AUTO DIFF [HEME] AM MAGNESIUM [CHEM] AM 11/26/20 05:11 BASIC METABOLIC PANEL,BMP [CHEM] AM CBC WITH AUTO DIFF [HEME] AM MAGNESIUM [CHEM] AM - Plan Plan:: This 55-year-old male admitted with acute decompensated systolic heart failure 1. 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 Will add on CTA of chest to rule out PE. - Continue losartan tomorrow at 12.5 mg daily 2. Aflutter - Rate controlled - Continue metoprolol 25 mg TID - Digoxin 250 mcg PO daily - CTA revealed small PEs with suggestion of emphysema. -Eliquis increased to 10 mg twice daily 3. DM type II -Monitor blood sugars 3 times daily AC -NovoLog sliding scale VTE prophylaxis: Eliqius CODE STATUS: CPR only patient requests no intubation but is agreeable to medications and compressions if needed. Dispo: 2 to 3 days pending improvement. Patient noncompliance and wanting to limit interactions with staff. Intermittent agitation and anxiety. We will continue to monitor patient encouraged to monitor fluid status as well as urinating in urinal to have adequate I's and O's for diuresis.
[2020-11-23] MEDS: Furosemide 40 MG/4 ML VIAL IVPUSH SCH ×3 (08:47→22:32)
[2020-11-23] MEDS: Apixaban 5 MG Tab PO SCH ×2 (08:48→20:04)
[2020-11-23] MEDS: Metoprolol Tartrate 50 MG Tab PO SCH ×3 (08:53→22:34)
[2020-11-23] MEDS: Insulin Aspart 100 Units/ML 3 ML Pen SUBCUT SCH ×3 (09:03→17:30)
[2020-11-23 09:24] LABS: CARBON DIOXIDE,CO2 26.2 mmol/L (21.0-32.0); POTASSIUM,K 4.3 mmol/L (3.5-5.1)
[2020-11-23 09:36] LABS: BILIRUBIN INDIRECT 0.9
[2020-11-23] MEDS: Digoxin 250 MCG Tab PO SCH (10:30)
[2020-11-24] MEDS: Furosemide 40 MG/4 ML VIAL IVPUSH SCH ×2 (05:53→13:37)
[2020-11-24] MEDS: Metoprolol Tartrate 50 MG Tab PO SCH (05:53)
[2020-11-24 06:19] LABS: CARBON DIOXIDE,CO2 26.6 mmol/L (21.0-32.0); POTASSIUM,K 3.8 mmol/L (3.5-5.1)
[2020-11-24] MEDS ORDERED: Losartan 50 MG Tab PO ONE (08:56)
[2020-11-24] MEDS: Digoxin 250 MCG Tab PO SCH (08:57)
[2020-11-24] MEDS: Apixaban 5 MG Tab PO SCH ×2 (08:58→20:14)
[2020-11-24] MEDS: Insulin Aspart 100 Units/ML 3 ML Pen SUBCUT SCH ×3 (08:59→18:45)
--- NOTE | 2020-11-24 12:13 | PCM.PN ---
- General Info Date of Service: 11/24/20 Admission Dx/Problem (Free Text): Admission Diagnosis/Problem Admission Diagnosis/Problem Aflutter, decompensated systolic CHF Subjective Update: Reports he is doing well today. Shortness of breath has significantly improved he is able to lay somewhat flat. Denies any chest pain. Palpitations have gone. Continues to be anxious regarding hospital stay and wants to leave as soon as possible. We were able to talk him into staying at least 1 more day to continue aggressive diuresis. Functional Status: Reports: Pain Controlled, Tolerating Diet, Ambulating, Urinating - Review of Systems General: Reports: No Symptoms. Denies: Fatigue, Malaise Pulmonary: Reports: Shortness of Breath (Much improved), Cough (Improved). Denies: Sputum Cardiovascular: Reports: Orthopnea (Much better), Edema. Denies: Chest Pain, Palpitations, Dyspnea on Exertion Gastrointestinal: Reports: No Symptoms. Denies: Abdominal Pain, Nausea, Vomiting Genitourinary: Reports: No Symptoms. Denies: Dysuria, Frequency, Burning Musculoskeletal: Reports: No Symptoms Skin: Reports: No Symptoms Neurological: Reports: No Symptoms Psychiatric: Reports: Anxiety - Patient Data Vitals - Most Recent: Last Vital Signs Temp 97.2 F 11/24/20 08:57 Pulse 83 11/24/20 08:57 Resp 18 11/24/20 08:57 BP 120/79 11/24/20 09:02 Pulse Ox 95 11/24/20 08:57 Weight - Most Recent: 93.077 kg I&O - Last 24 Hours: Intake & Output 11/23/20 11/24/20 11/24/20 22:59 06:59 14:59 Intake Total 680 900 Output Total 1420 1360 Balance -740 -460 Lab Results Last 24 Hours: Laboratory Results - last 24 hr 11/24/20 11/24/20 11/24/20 Range/Units 05:04 05:04 08:52 WBC 13.47 H (4.0-11.0) K/uL RBC 5.92 H (4.50-5.90) M/uL Hgb 12.6 L (13.0-17.0) g/dL Hct 42.4 (38.0-50.0) % MCV 71.6 L (80.0-98.0) fL MCH 21.3 L (27.0-32.0) pg MCHC 29.7 L (31.0-37.0) g/dL RDW Std Deviation 46.5 (28.0-62.0) fl RDW Coeff of Chelsie 18 H (11.0-15.0) % Plt Count 384 (150-400) K/uL MPV 9.70 (7.40-12.00) fL Neut % (Auto) 69.8 (48.0-80.0) % Lymph % (Auto) 19.0 (16.0-40.0) % [place] % (Auto) 10.3 (0.0-15.0) % Eos % (Auto) 0.6 (0.0-7.0) % Baso % (Auto) 0.3 (0.0-1.5) % Neut # (Auto) 9.4 H (1.4-5.7) K/uL Lymph # (Auto) 2.6 H (0.6-2.4) K/uL [place] # (Auto) 1.4 H (0.0-0.8) K/uL Eos # (Auto) 0.1 (0.0-0.7) K/uL Baso # (Auto) 0.0 (0.0-0.1) K/uL Nucleated RBC % 0.0 /100WBC Nucleated RBCs # 0 K/uL Sodium 136 (136-148) mmol/L Potassium 3.8 (3.5-5.1) mmol/L Chloride 100 (98-107) mmol/L Carbon Dioxide 26.6 (21.0-32.0) mmol/L BUN 39 H (7.0-18.0) mg/dL Creatinine 1.7 H (0.8-1.3) mg/dL Est Cr Clr Drug Dosing 47.50 mL/min Estimated GFR (MDRD) 42.1 ml/min Glucose 111 H (74-106) mg/dL POC Glucose 101 (60-110) mg/dL Calcium 8.9 (8.5-10.1) mg/dL Magnesium 2.3 (1.8-2.4) mg/dL Total Bilirubin 1.0 (0.2-1.0) mg/dL AST 37 (15-37) IU/L ALT 44 (14-63) IU/L Alkaline Phosphatase 180 H (46-116) U/L Total Protein 7.1 (6.4-8.2) g/dL Albumin 3.1 L (3.4-5.0) g/dL Globulin 4.0 (2.6-4.0) g/dL Albumin/Globulin Ratio 0.8 L (0.9-1.6) Med Orders - Current: Current Medications Acetaminophen (Tylenol) 650 mg PO Q4H PRN PRN Reason: Pain (Mild 1-3)/fever Apixaban (Eliquis) 10 mg PO Q12H [facility] Last Admin: 11/24/20 08:58 Dose: 10 mg Documented by: Benzonatate (Tessalon Perles) 100 mg PO Q6H PRN PRN Reason: Cough Last Admin: 11/22/20 23:35 Dose: 100 mg Documented by: Dextrose/Water (Dextrose 50% In Water) 50 ml IV ASDIRECTED PRN PRN Reason: Hypoglycemia Digoxin (Lanoxin) 250 mcg PO DAILY [facility] Last Admin: 11/24/20 08:57 Dose: 250 mcg Documented by: Docusate Sodium (Colace) 100 mg PO BID PRN PRN Reason: Constipation Furosemide (Lasix) 40 mg IVPUSH TID [facility] Last Admin: 11/24/20 05:53 Dose: 40 mg Documented by: Glucagon (Glucagen) 1 mg IM ASDIRECTED PRN PRN Reason: Hypoglycemia Guaifenesin (Robitussin) 100 mg PO Q6H PRN PRN Reason: Cough Last Admin: 11/23/20 03:07 Dose: 100 mg Documented by: Insulin Aspart (Novolog) 0 unit SUBCUT TIDAC [facility]; Protocol Last Admin: 11/24/20 11:56 Dose: Not Given Documented by: Metoprolol Tartrate (Lopressor) 75 mg PO TID [facility] Ondansetron HCl (Zofran) 4 mg IVPUSH Q4H PRN PRN Reason: Nausea Sodium Chloride (Saline Flush) 2.5 ml FLUSH ASDIRECTED PRN PRN Reason: Keep Vein Open Discontinued Medications Alprazolam (Xanax) 0.5 mg PO NOW ONE Stop: 11/23/20 04:44 Last Admin: 11/23/20 04:47 Dose: 0.5 mg Documented by: Apixaban (Eliquis) 5 mg PO BID [facility] Last Admin: 11/22/20 16:51 Dose: 5 mg Documented by: Apixaban (Eliquis) 5 mg PO ONETIME ONE Stop: 11/22/20 18:31 Last Admin: 11/22/20 19:00 Dose: 5 mg Documented by: Aspirin (Aspirin) 324 mg PO ONETIME ONE Stop: 11/22/20 13:40 Last Admin: 11/22/20 13:43 Dose: 324 mg Documented by: Digoxin (Lanoxin) 250 mcg IVPUSH Q2H [facility] Stop: 11/22/20 21:16 Last Admin: 11/22/20 22:40 Dose: 250 mcg Documented by: Enoxaparin Sodium (Lovenox) 40 mg SUBCUT Q24H [facility] Last Admin: 11/22/20 17:39 Dose: Not Given Documented by: Furosemide (Lasix) 40 mg IVPUSH NOW ONE Stop: 11/22/20 15:11 Last Admin: 11/22/20 15:18 Dose: 40 mg Documented by: Magnesium Sulfate 2 gm/ Premix 50 mls @ 50 mls/hr IV ONETIME ONE Stop: 11/22/20 14:38 Last Admin: 11/22/20 13:43 Dose: 50 mls/hr Documented by: Lactated Ringer's (Ringers, Lactated) 1,000 mls @ 999 mls/hr IV .BOLUS ONE Stop: 11/22/20 14:45 Last Admin: 11/22/20 14:00 Dose: 999 mls/hr Documented by: Amiodarone HCl/Dextrose (Nexterone In Dextrose 150 Mg/100 Ml) 100 mls @ 600 mls/hr IV ONETIME ONE; Protocol Stop: 11/22/20 16:46 Last Admin: 11/22/20 17:35 Dose: Not Given Documented by: Amiodarone HCl/Dextrose (Nexterone In Dextrose 360 Mg/200 Ml) 360 mg in 200 mls @ 33.333 mls/hr IV ASDIRECTED [facility]; Protocol Amiodarone HCl/Dextrose (Nexterone In Dextrose 150 Mg/100 Ml) 100 mls @ 600 mls/hr IV ONETIME ONE; Protocol Stop: 11/22/20 20:09 Amiodarone HCl/Dextrose (Nexterone In Dextrose 360 Mg/200 Ml) 360 mg in 200 mls @ 33.333 mls/hr IV ASDIRECTED [facility]; Protocol Iopamidol (Isovue Multipack-370 (76%)) 100 ml IVPUSH ONETIME STA Stop: 11/22/20 17:27 Last Admin: 11/22/20 17:38 Dose: 100 ml Documented by: Losartan Potassium (Cozaar) 12.5 mg PO ONETIME ONE Stop: 11/24/20 08:57 Last Admin: 11/24/20 09:02 Dose: 12.5 mg Documented by: Melatonin (Melatonin) 3 mg PO BEDTIME [facility] Stop: 11/23/20 03:01 Last Admin: 11/23/20 03:07 Dose: 3 mg Documented by: Metoprolol Succinate (Toprol Xl) 25 mg PO BEDTIME [facility] Last Admin: 11/22/20 20:59 Dose: 25 mg Documented by: Metoprolol Tartrate (Lopressor) 50 mg PO Q8HR [facility] Last Admin: 11/24/20 05:53 Dose: 50 mg Documented by: Sodium Chloride (Saline Flush) 10 ml FLUSH ASDIRECTED PRN PRN Reason: Keep Vein Open Last Admin: 11/22/20 13:49 Dose: 10 ml Documented by: Sodium Chloride (Saline Flush) 2.5 ml FLUSH ASDIRECTED PRN PRN Reason: Keep Vein Open Last Admin: 11/22/20 13:49 Dose: 2.5 ml Documented by: - Exam General: Alert, Oriented, Cooperative, No Acute Distress Neck: JVD Lungs: Decreased Breath Sounds, Crackles (Fine crackles bibasilar but has improved since admission) Cardiovascular: No Murmurs, Irregular Rhythm GI/Abdominal Exam: Normal Bowel Sounds, Soft, Non-Tender Back Exam: Normal Inspection, Full Range of Motion Extremities: Normal Inspection, Normal Range of Motion, Non-Tender, Pedal Edema (+1 nonpitting edema bilaterally) Neurological: No New Focal Deficit Psy/Mental Status: Alert, Normal Affect, Normal Mood, Anxious Sepsis Event Note - Evaluation Sepsis Screening Result: No Definite Risk - Focused Exam Vital Signs: Vital Signs Temp Pulse Resp BP BP Pulse Ox 11/24/20 09:02 120/79 11/24/20 08:57 97.2 F 83 18 120/79 95 11/24/20 05:53 83 105/62 11/24/20 04:00 17 97 - Problem List & Annotations (1) Heart failure with reduced ejection fraction SNOMED Code(s): 913328925 Code(s): I50.20 - UNSPECIFIED SYSTOLIC (CONGESTIVE) HEART FAILURE Status: Acute Current Visit: Yes (2) Diabetes mellitus SNOMED Code(s): 33763402 Code(s): E11.9 - TYPE 2 DIABETES MELLITUS WITHOUT COMPLICATIONS Status: Chronic Current Visit: No Qualifiers: Diabetes mellitus type: type 2 Diabetes 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 use: without jail use Diabetes mellitus complication status: without complication Qualified Code(s): E11.9 - Type 2 diabetes mellitus without complications (3) HTN (hypertension) SNOMED Code(s): 01978257 Code(s): I10 - ESSENTIAL (PRIMARY) HYPERTENSION Status: Chronic Current Visit: No Qualifiers: Hypertension type: essential hypertension Qualified Code(s): I10 - Essential (primary) hypertension (4) Atrial flutter SNOMED Code(s): 7907526 Code(s): I48.92 - UNSPECIFIED ATRIAL FLUTTER Status: Acute Current Visit: Yes Qualifiers: Atrial flutter type: unspecified Qualified Code(s): I48.92 - Unspecified atrial flutter (5) Pulmonary emboli SNOMED Code(s): 64882956 Code(s): I26.99 - OTHER PULMONARY EMBOLISM WITHOUT ACUTE COR PULMONALE Status: Acute Current Visit: Yes Qualifiers: Pulmonary embolism type: other Chronicity: acute Acute cor pulmonale presence: without acute cor pulmonale Qualified Code(s): I26.99 - Other pulmonary embolism without acute cor pulmonale - Problem List Review Problem List Initiated/Reviewed/Updated: Yes - My Orders Last 24 Hours: My Active Orders 11/25/20 05:11 CBC WITH AUTO DIFF [HEME] AM COMPREHENSIVE METABOLIC PN,CMP [CHEM] AM MAGNESIUM [CHEM] AM 11/26/20 05:11 CBC WITH AUTO DIFF [HEME] AM COMPREHENSIVE METABOLIC PN,CMP [CHEM] AM MAGNESIUM [CHEM] AM - Plan Plan:: This 55-year-old male admitted with acute decompensated systolic heart failure 1. Acute decompensated systolic heart failure -Diuresing well -Continue Lasix 40 mg 3 times daily -Strict I's and O's -2 g low-sodium diet, with 1.8 L fluid restriction -Daily weights -Monitor on athletic monitor -Recent echo completed November 14, 2020 - Continue losartan 12.5 mg daily 2. Aflutter - Rate controlled -Per Dr. Renae metoprolol increased to 75 TID we will then start 200 mg XL in the morning. - Digoxin 250 mcg PO daily - CTA revealed small PEs with suggestion of emphysema. -Eliquis 10 mg twice daily 3. DM type II -Monitor blood sugars 3 times daily AC -NovoLog sliding scale VTE prophylaxis: Eliqius CODE STATUS: CPR only patient requests no intubation but is agreeable to medications and compressions if needed. Dispo: 2 to 3 days pending improvement.
[2020-11-24] MEDS ORDERED: Metoprolol Tartrate 25 MG Tab PO SCH (14:00)
[2020-11-24] MEDS ORDERED: Metoprolol Tartrate 50 MG Tab PO ONE (22:00)
--- NOTE | 2020-11-25 07:51 | CONS ---
DATE OF CONSULTATION: 11/24/2020 DATE OF : 1965 PRIMARY CARE PHYSICIAN: None PCP REASON FOR CONSULTATION: Decompensated congestive heart failure. HISTORY OF PRESENT ILLNESS: This is a 55-year-old male who has a history of noncompliance, current smoker, new onset diabetes type 2, and decompensated systolic heart failure. He is in the hospital at this time because of tiredness and shortness of breath. I saw him as an outpatient because of a new onset heart failure when he was admitted in the hospital back in September 2020, and we did an echocardiogram. It showed an ejection fraction of 20%. The echocardiogram was done as an outpatient because from the last admission he left the hospital against medical advice. At this time we got an echocardiogram done on the , and the result was sent to us on around or , and ejection fraction was shown to be 20% with mild TR, moderate RV systolic dysfunction. RVSP of 48. His EKG at that time when he was admitted to the hospital was showing a sinus tachycardia, QRS complex of 95. I did not appreciate any flutter. Then he called into the clinic because of feeling so tired. He did not want to come to the clinic for followup, and he was breathing heavily. I told him to come to the hospital, that is why he was admitted here in the hospital. In the hospital, when he came into the emergency room, initial blood pressure was 135/95, and the heart rate was 120 to 130 and O2 saturation was 98 on room air, respiration was 16 to 20, and temperature was 97.5. X-rays showed mild pulmonary vascular congestion, and troponin was negative so far. BNP was elevated to 176. However, it was lower than the previous one with a creatinine of 1.8. He also got tested for COVID, which was negative. He was given IV Lasix 40 mg, and then he was admitted to the hospital. Because of the EKG at this time showing typical atrial flutter, this seemed to be new onset. We also did a CT angio of the lung, which showed pulmonary embolism in the right apical segmental pulmonary arteries. Otherwise, the primary arteries are patent, though seem to be small. FAMILY HISTORY: His father had a history of CABG at 60. SOCIAL HISTORY: He is a current smoker. He is an occasional drinker. He denies any drug use. PAST MEDICAL HISTORY: Decompensated systolic heart failure, new onset diabetes, current smoker. REVIEW OF SYSTEMS: Positive for shortness of breath, heavy chest, leg swelling, and orthopnea. Otherwise been negative. ALLERGIES: No known drug allergy. PHYSICAL EXAMINATION: VITAL SIGNS: On the current blood pressure now is 120 over 80s, heart rate of 130, O2 sat is 97 on room air, respiration is 20, and temperature 97.5. NECK: JVD is positive. LUNGS: Crackly bilaterally. ABDOMEN: Soft and nontender. Bowel sounds are present. No hepatosplenomegaly. EXTREMITIES: Legs, edema 1 to 2+. LABORATORY INVESTIGATIONS: CBC showed WBC of 12, hematocrit of 42, hemoglobin of 12, and platelet is 364. D-dimer 0.75, creatinine 1.8, potassium 3.9, sodium 137, chloride 102, and bicarb 26. Liver function tests are normal. Troponin was negative x1. BNP 276. TSH is normal. EKG shows typical atrial flutter, heart rate of 130. ASSESSMENT: This is a 55-year-old male, who is a current smoker, new onset diabetes, new onset systolic decompensated heart failure, presented to hospital with respiratory failure with shortness of breath with decompensated heart failure. He will be given IV diuretics 40 three times a day, I will also start him on a digoxin 250 IV, as well as metoprolol 50 t.i.d. for heart rate control. However, the patient is a difficult patient and as he has not seen any doctor for a long time. He feels that it is not necessary. Now, he is frustrated to stay in the hospital. He does not want to be bothered or to be checked out very frequently, which I explained to him when he was admitted in the ICU, he will be monitored very closely, because his heart condition and heart failure. He finally said he did not care if he is going to pass, it will be the time, and he does not really care much about further treatment. However, he finally stayed, but he still does not want to change his clothes to the patient gown. He does not want to be bothered very often, even though we told him that it is because this is a protocol for the ICU patient, he still insists that to not be bothered unnecessarily. He verbalized understanding that he needs to comply with the hospital policy about that. I also explained to him about the risks of having a sudden cardiac arrest from cardiomyopathy, and the need for the evaluation for ICD and also I gave him the information about the variable defibrillator. He wants to think about it, but he does not seem too keen or interested about it. He really wanted to leave the hospital as soon as possible. It seems that he has concerns about the finances as well, because he does not have the insurance. I told him that we can ask a financial professional to come and talk to him. He does not seem to be satisfied about the idea, and he admitted that he is a very impatient person, he cannot stay in one place for a long time. I told him that he needs to comply with the hospital policy, otherwise, we have no way to help him. I am not sure if he is going to comply with our instruction, but we are trying our best to have this gentleman, but obviously we cannot really force him to do things as we instructed to for his good health. This is a very challenging patient for us. Thank you so much, and we will follow the patient as inpatient. OLAMIDE HAYWARD /[id number]
[2020-11-25] MEDS ORDERED: Metoprolol Succinate 100 MG Tab.ER PO SCH (09:00)
== END 2020-11-24 20:15 | disposition left against medical advice (07) | DRG 291 ==
LOC: MW.ED 13:17 → MW.ICU 15:32 → MW.MS 11-24 14:28
PROVIDERS: ADMIT Internal Medicine; ATTEND Internal Medicine
DX: I11.0 Hypertensive heart disease with heart failure (principal); I50.21 Acute systolic (congestive) heart failure; I26.99 Other pulmonary embolism without acute cor pulmonale; J96.90 Respiratory failure, unspecified, unspecified whether with hypoxia or hypercapnia; I48.92 Unspecified atrial flutter; E11.9 Type 2 diabetes mellitus without complications; G47.00 Insomnia, unspecified; Z20.828 Contact with and (suspected) exposure to other viral communicable diseases; F17.200 Nicotine dependence, unspecified, uncomplicated; Z79.899 Other long term (current) drug therapy; E66.9 Obesity, unspecified; Z95.1 Presence of aortocoronary bypass graft; Z68.31 Body mass index [BMI] 31.0-31.9, adult
CPT/HCPCS: 36415; 71045; 71045-26; 71275; 71275-26; 80048; 80053; 80061; 80076; 82803; 82962; 83735; 83880; 84443; 84484; 85025; 85379; 93005; 93010; 96365; 96375; 99285; 99285-25; A9270-GY; J1160; J1815-GY; J1940; J3475; J7120; Q9967; U0002

== ENCOUNTER 2020-12-10 03:55 | Emergency (ER) | payer SELFPAY ==
[2020-12-10] MEDS ORDERED: Ondansetron 4 MG/2 ML SDV IVPUSH ONE (04:05)
[2020-12-10] MEDS ORDERED: fentaNYL 50 MCG/ML SDV IVPUSH ONE (04:05)
[2020-12-10] MEDS ORDERED: Sodium Chloride 0.9% 10 ML Syringe FLUSH PRN (04:05)
[2020-12-10] MEDS ORDERED: Sodium Chloride 0.9% 2.5 ML Syringe FLUSH PRN (04:05)
--- NOTE | 2020-12-10 04:18 | EDM.PDOC ---
ED HPI GENERAL MEDICAL PROBLEM - General Stated Complaint: ABD. PAIN Time Seen by Provider: 12/10/20 04:01 - History of Present Illness INITIAL COMMENTS - FREE TEXT/NARRATIVE: History of present illness: [] The patient has severe pain in the periumbilical area of his abdomen. It is associated with shortness of breath. Is associated with nausea and he vomited once. It is constant. It is worse when he exerts himself or eats. He is worried it is gallbladder. 11 6 this previously healthy male came in with decompensated CHF was was admitted overnight. He was started on diuretics, felt better, and left AMA. On 14 November his outpatient work-up showed a cardiomyopathy with a percent EF. He returned on 22 November and was admitted for dyspnea and CHF decompensation. At that time it was decided that he was in atrial flutter and he saw cardio logy. He was noted to have a small pulmonary embolus on CT angio of his chest. He was suggested that he be started on amiodarone and Eliquis. He is unable to afford either. He was not offered a coupon to start the Eliquis nor a less costly alternative. Unfortunately he left without discharge planning to make definite arrangements for him to get anticoagulation and further cardiology work-up. The patient now presents with this epigastric pain. Not taking a blood thinner. Review of systems: As per history of present illness and below otherwise all systems reviewed and negative. Past medical history: As per history of present illness and as reviewed below otherwise noncontributory. Surgical history: As per history of present illness and as reviewed below otherwise noncontributory. Social history: No reported history of drug or alcohol abuse. Patient is a smoker and is intermittently trying to stop since the first episode in September. Family history: As per history of present illness and as reviewed below otherwise noncontributory. Physical exam: Constitutional - well developed, well-nourished and in no acute distress HEENT - normocephalic, no evidence of trauma - external nose and mouth normal - no mass in neck and no JVD - mucosae moist EYES - full EOM, PERRL, no icterus - no evidence of inflammation, injection, or drainage Respiratory - no respiratory distress, equal bilateral expansion, lungs clear to auscultation and no abnormal lung sounds Cardiovascular - Regular Rhythm with S1 and S2 appreciated and no murmur, gallop or rub. GI - abdomen distended and tender in the epigastrium and right upper quadrant. Without organomegaly - normal bowel sounds - no guard or rebound Musculoskeletal no gross deformity of long bones or joints - no tenderness, swelling or edema Neurologic - Alert and oriented times four - CN II-XII grossly intact - motor sensory and coordination symmetrically normal Psychiatric - appropriate mood and affect with normal thought content Hematologic - No petechiae or purpura - mucosa appropriate color and sclera not pale - normal nail bed color and refill Integument - no rash or evidence of trauma - normal turgor Diagnostics: [] Therapeutics: [] Impression: [] Plan: [] Definitive disposition and diagnosis as appropriate pending reevaluation and review of above. Abdomen Pain Score (Numeric/FACES): 9 - Related Data Allergies Allergy/AdvReac Type Severity Reaction Status Date / Time No Known Allergies Allergy Verified 12/10/20 04:08 Home Meds: Home Meds Furosemide 40 mg PO DAILY 30 Days #30 tablet 10/01/20 [Rx] Digoxin 250 mcg PO DAILY #30 tablet 11/25/20 [Rx] Losartan [Cozaar] 12.5 mg PO DAILY #14 tab 11/25/20 [Rx] Metoprolol Succinate [Toprol XL] 200 mg PO DAILY #30 tab.sr.24h 11/25/20 [Rx] Nitroglycerin [Nitrostat] 0.4 mg SL ASDIRECTED 12/10/20 [History] Past Medical History - Past Health History Medical/Surgical History: Denies Medical/Surgical History Cardiovascular History: Reports: Heart Failure Respiratory History: Reports: None Gastrointestinal History: Reports: None Neurological History: Reports: None Endocrine/Metabolic History: Reports: Diabetes, Type II, Obesity/BMI 30+ - Infectious Disease History Infectious Disease History: Reports: Chicken Pox Social & Family History - Family History Family Medical History: No Pertinent Family History - Caffeine Use Caffeine Use: Reports: Soda - Living Situation & Occupation Occupation: Employed ED ROS GENERAL - Review of Systems Review Of Systems: Comprehensive ROS is negative, except as noted in HPI. ED EXAM, GENERAL - Physical Exam Exam: See Below Free Text/Narrative:: My physical exam is in the HPI #1 Interpretation EKG Interpretation Comments: EKG atrial flutter with a ventricular rate of 112. Is 81. There is a predominant S wave with transition to normal R wave by V5 in the precordium. There is Q-wave in V1. This is can paired to the prior EKG available here and there is no significant change except rate is slower now. Impression no obvious acute injury #2 Interpretation EKG Interpretation Comments: EKG repeated at 4:56 AM he is in need obvious sinus rhythm at this point with a OR interval 178. Heart rate is 80. QT is 463. QRS is 114. There is T wave inversions in V5 and V6. The flutter waves in the initial EKG tonight and unable to say that the T wave is clearly different than it was on the prior EKG. Pression improvement in rhythm while the patient is having a deterioration in condition. Course - Vital Signs Text/Narrative:: 4:59 AM the patient's blood pressure is in the 60s. His x-ray does not look like acute CHF. His renal and liver functions have deteriorated since he was in the hospital last. He is known to have a pulmonary embolus and has not had any blood thinners since he was in the hospital discharge in the beginning of this month. The patient has been discharged AMA and not had follow-up. When I reviewed his records it looks like he had a discussion with the keeper helper about the inconvenience of having his vital signs checked having to wear a gown etc. and he did not want to be inconvenienced by having a more thorough and close observation in the hospital. He actually left AGAINST MEDICAL ADVICE. He told the keeper helper that he only to take the chance that he would if he did not get any further care. He claimed he was very impatient and that he was unwilling to stay even if his life might be in jeopardy. 0504 the patient is hypotensive with a blood pressure in the 50s. He feels like crap according to him. He has been told that his kidney and liver condition is worse than it had been. He says that he wants me to try to make him feel better and try to save him but he says if he has an arrhythmia or stops breathing that he does not want to be resuscitated. He understands that he would if he had a arrhythmia of significance or stop breathing and we did not do CPR defibrillate MR of ventilate him artificially. At this point I do not think he is in acute CHF although he has a very small ejection fraction. Since his pressures dropped I will try some fluid. Troponin is initially elevated but sores renal functions. If I can stabilize him long enough to repeat the troponin it will be helpful in deciding what he needs so that I can make proper recommendation. He most likely will need to be transferred for specialty care and nephrology and cardiology. I am not sure he will comply with this. With Trena as my witness the patient said if he stopped breathing he does not want to be intubated and if he had a cardiac arrest he does not want to be resuscitated and defibrillated. He said when it is time to go he wants to go. He understands the meaning of the term DO NOT RESUSCITATE and says that that is what he wishes. 06:18 hours the patient had refused to let us help him use the bedpan and insisted on going to the bathroom. He was able to defecate and the stool was heme-negative. Is able to get back to the bed but after moving about his abdominal pain was a lot worse. This patient has known pulmonary embolus discovered November 22 and he has not had a blood thinner since he left the hospital because there is no closer facility I am going to transfer this patient to [place]. Therefore even though he needs contrast to rule out mesenteric ischemia and doing an unenhanced CT here and he is in the CT scanner when I discussed the case with Dr. Ugalde. We decided to address his hyperkalemia but not use albuterol because we did not want to increase his rate or put him back in atrial fib. We also decided to heparinize him and put him on a norepinephrine drip to maintain his pressure. Already received Lovenox and will only use a heparin drip at the pulmonary embolus protocol rate. The patient clinically has been in shock but he has no source of infection so he is not being treated as sepsis. Due to a high probability of clinically significant, life threatening deterioration, the patient required my highest level of preparedness to intervene emergently and I personally spent this critical care time directly and personally managing the patient. This critical care time included obtaining a history; examining the patient; pulse oximetry; ordering and review of studies; arranging urgent treatment with development of a management plan; evaluation of patient's response to treatment; frequent reassessment; and, discussions with other providers. This critical care time was performed to assess and manage the high probability of imminent, life-threatening deterioration that could result in multi-organ failure. It was exclusive of separately billable procedures and treating other patients and teaching time. This patient was seen and evaluated during the 2019 SARS-CoV-2 novel coronavirus pandemic period. Community viral transmission is ongoing at time of this encounter and the emergency department is operating under pandemic response procedures. Last Recorded V/S: Last Vital Signs Temp 36.7 C 12/10/20 06:45 Pulse 20 L 12/10/20 06:45 Resp 20 12/10/20 06:45 BP 112/80 12/10/20 06:45 Pulse Ox 5 L 12/10/20 06:45 - Orders/Labs/Meds Orders: Active Orders 24 hr Category Date Time Status Cardiac Monitoring [RC] . DIRECTED Care 12/10/20 04:05 Active EKG Documentation Completion [RC] STAT Care 12/10/20 05:05 Active Pulse Oximetry [RC] ASDIRECTED Care 12/10/20 04:05 Active Abdomen Pelvis wo Cont [CT] Stat Exams 12/10/20 06:10 Taken PTT,PARTIAL THROMBOPLSTIN TIME [COAG] Q6H Lab 12/11/20 00:45 Ordered PTT,PARTIAL THROMBOPLSTIN TIME [COAG] Q6H Lab 12/11/20 06:45 Ordered PTT,PARTIAL THROMBOPLSTIN TIME [COAG] Q6H Lab 12/11/20 12:45 Ordered PTT,PARTIAL THROMBOPLSTIN TIME [COAG] Q6H Lab 12/11/20 18:45 Ordered PTT,PARTIAL THROMBOPLSTIN TIME [COAG] Stat Lab 12/10/20 04:15 Received Dextrose 50% in Water Med 12/10/20 06:44 Active 50 ml IV ASDIRECTED PRN Glucagon,Human Recombinant [GlucaGen] Med 12/10/20 06:44 Active 1 mg IM ASDIRECTED PRN Heparin Sodium/0.45% NaCl [Heparin 25,000 Units in 1/2 Med 12/10/20 06:45 Active NS 500 ML] 500 ml IV TITRATE Norepinephrine Bit/0.9 % NaCl [Norepinephr-0.9% NaCl 4 Med 12/10/20 06:45 Active mg/250] 4 mg in 250 ml IV TITRATE Sodium Chloride 0.9% [Normal Saline] 500 ml Med 12/10/20 05:00 Active IV .BOLUS Sodium Chloride 0.9% [Saline Flush] Med 12/10/20 04:05 Active 10 ml FLUSH ASDIRECTED PRN Sodium Chloride 0.9% [Saline Flush] Med 12/10/20 04:05 Active 2.5 ml FLUSH ASDIRECTED PRN Saline Lock Insert [OM.PC] Stat Oth 12/10/20 04:05 Ordered Medication Orders Dextrose/Water (Dextrose 50% In Water) 50 ml IV ASDIRECTED PRN PRN Reason: Hypoglycemia Glucagon (Glucagen) 1 mg IM ASDIRECTED PRN PRN Reason: Hypoglycemia Sodium Chloride (Normal Saline) 500 mls @ 500 mls/hr IV .BOLUS SADA Last Admin: 12/10/20 05:14 Dose: 500 mls/hr Documented by: ELDA Heparin Sodium/Sodium Chloride (Heparin 25,000 Units In 1/2 Ns 500 Ml) 500 mls @ 33.475 mls/hr IV TITRATE SADA Norepinephrine Bitartrate (Norepinephr-0.9% Nacl 4 Mg/250) 4 mg in 250 mls @ 7.5 mls/hr IV TITRATE SADA; Protocol Sodium Chloride (Saline Flush) 10 ml FLUSH ASDIRECTED PRN PRN Reason: Keep Vein Open Sodium Chloride (Saline Flush) 2.5 ml FLUSH ASDIRECTED PRN PRN Reason: Keep Vein Open Labs: Laboratory Tests 12/10/20 12/10/20 12/10/20 Range/Units 04:15 04:15 04:15 WBC 16.78 H (4.0-11.0) K/uL RBC 6.21 H (4.50-5.90) M/uL Hgb 13.3 (13.0-17.0) g/dL Hct 46.0 (38.0-50.0) % MCV 74.1 L (80.0-98.0) fL MCH 21.4 L (27.0-32.0) pg MCHC 28.9 L (31.0-37.0) g/dL RDW Std Deviation 51.6 (28.0-62.0) fl RDW Coeff of Chelsie 20 H (11.0-15.0) % Plt Count 404 H (150-400) K/uL MPV 9.50 (7.40-12.00) fL Neut % (Auto) 77.9 (48.0-80.0) % Lymph % (Auto) 14.8 L (16.0-40.0) % Gentry % (Auto) 7.0 (0.0-15.0) % Eos % (Auto) 0.1 (0.0-7.0) % Baso % (Auto) 0.2 (0.0-1.5) % Neut # (Auto) 13.1 H (1.4-5.7) K/uL Lymph # (Auto) 2.5 H (0.6-2.4) K/uL Gentry # (Auto) 1.2 H (0.0-0.8) K/uL Eos # (Auto) 0.0 (0.0-0.7) K/uL Baso # (Auto) 0.0 (0.0-0.1) K/uL Nucleated RBC % 0.0 /100WBC Nucleated RBCs # 0 K/uL Lactate 3.7 H* (0.20-2.00) mmol/L Sodium 138 (136-148) mmol/L Potassium 5.7 H (3.5-5.1) mmol/L Chloride 101 (98-107) mmol/L Carbon Dioxide 22.9 (21.0-32.0) mmol/L BUN 36 H (7.0-18.0) mg/dL Creatinine 2.6 H (0.8-1.3) mg/dL Est Cr Clr Drug Dosing 27.92 mL/min Estimated GFR (MDRD) 25.8 ml/min Glucose 136 H (74-106) mg/dL Calcium 9.3 (8.5-10.1) mg/dL Total Bilirubin 1.6 H (0.2-1.0) mg/dL AST 126 H (15-37) IU/L ALT 143 H (14-63) IU/L Alkaline Phosphatase 255 H (46-116) U/L Troponin I 0.076 H* (0.000-0.056) ng/mL B-Natriuretic Peptide (<100) PG/ML Total Protein 7.9 (6.4-8.2) g/dL Albumin 3.5 (3.4-5.0) g/dL Globulin 4.4 H (2.6-4.0) g/dL Albumin/Globulin Ratio 0.8 L (0.9-1.6) Lipase 172 (73-393) U/L Digoxin 0.2 L (0.9-2.0) ng/mL SARS-CoV-2 RNA (LAURA) (NEGATIVE) 12/10/20 12/10/20 12/10/20 Range/Units 04:30 05:25 05:25 WBC (4.0-11.0) K/uL RBC (4.50-5.90) M/uL Hgb (13.0-17.0) g/dL Hct (38.0-50.0) % MCV (80.0-98.0) fL MCH (27.0-32.0) pg MCHC (31.0-37.0) g/dL RDW Std Deviation (28.0-62.0) fl RDW Coeff of Chelsie (11.0-15.0) % Plt Count (150-400) K/uL MPV (7.40-12.00) fL Neut % (Auto) (48.0-80.0) % Lymph % (Auto) (16.0-40.0) % Gentry % (Auto) (0.0-15.0) % Eos % (Auto) (0.0-7.0) % Baso % (Auto) (0.0-1.5) % Neut # (Auto) (1.4-5.7) K/uL Lymph # (Auto) (0.6-2.4) K/uL Gentry # (Auto) (0.0-0.8) K/uL Eos # (Auto) (0.0-0.7) K/uL Baso # (Auto) (0.0-0.1) K/uL Nucleated RBC % /100WBC Nucleated RBCs # K/uL Lactate (0.20-2.00) mmol/L Sodium (136-148) mmol/L Potassium (3.5-5.1) mmol/L Chloride (98-107) mmol/L Carbon Dioxide (21.0-32.0) mmol/L BUN (7.0-18.0) mg/dL Creatinine (0.8-1.3) mg/dL Est Cr Clr Drug Dosing mL/min Estimated GFR (MDRD) ml/min Glucose (74-106) mg/dL Calcium (8.5-10.1) mg/dL Total Bilirubin (0.2-1.0) mg/dL AST (15-37) IU/L ALT (14-63) IU/L Alkaline Phosphatase (46-116) U/L Troponin I 0.082 H* (0.000-0.056) ng/mL B-Natriuretic Peptide 567 H (<100) PG/ML Total Protein (6.4-8.2) g/dL Albumin (3.4-5.0) g/dL Globulin (2.6-4.0) g/dL Albumin/Globulin Ratio (0.9-1.6) Lipase (73-393) U/L Digoxin (0.9-2.0) ng/mL SARS-CoV-2 RNA (LAURA) NEGATIVE (NEGATIVE) Meds: Medications Generic Name Dose Route Start Last Admin Trade Name Renae PRN Reason Stop Dose Admin Dextrose/Water 50 ml 12/10/20 06:44 Dextrose 50% In Water IV ASDIRECTED PRN Hypoglycemia Glucagon 1 mg 12/10/20 06:44 Glucagen IM ASDIRECTED PRN Hypoglycemia Sodium Chloride 500 mls @ 500 mls/hr 12/10/20 05:00 12/10/20 05:14 Normal Saline IV 500 mls/hr .BOLUS SADA Administration Heparin Sodium/Sodium Chloride 500 mls @ 33.475 mls/hr 12/10/20 06:45 Heparin 25,000 Units In 1/2 Ns 500 Ml IV TITRATE SADA 18 UNITS/KG/HR Norepinephrine Bitartrate 4 mg in 250 mls @ 7.5 mls/hr 12/10/20 06:45 Norepinephr-0.9% Nacl 4 Mg/250 IV TITRATE SADA Protocol 2 MCG/MIN Sodium Chloride 10 ml 12/10/20 04:05 Saline Flush FLUSH ASDIRECTED PRN Keep Vein Open Sodium Chloride 2.5 ml 12/10/20 04:05 Saline Flush FLUSH ASDIRECTED PRN Keep Vein Open Discontinued Medications Generic Name Dose Route Start Last Admin Trade Name Frecarlos PRN Reason Stop Dose Admin Calcium Gluconate 1 gm 12/10/20 06:45 12/10/20 06:54 Calcium Gluconate IV 12/10/20 06:46 1 gm ONETIME ONE Administration Dextrose/Water 50 ml 12/10/20 06:43 Dextrose 50% In Water IVPUSH 12/10/20 06:44 ONETIME ONE Enoxaparin Sodium 100 mg 12/10/20 04:57 12/10/20 05:14 Lovenox SUBCUT 12/10/20 04:58 100 mg ONETIME ONE Administration Fentanyl 50 mcg 12/10/20 04:05 12/10/20 04:19 Fentanyl IVPUSH 12/10/20 04:06 50 mcg ONETIME ONE Administration Insulin Human Regular 10 unit 12/10/20 06:44 12/10/20 06:55 Novolin R IVPUSH 12/10/20 06:45 10 unit ONETIME ONE Administration Protocol Ondansetron HCl 4 mg 12/10/20 04:05 12/10/20 04:19 Zofran IVPUSH 12/10/20 04:06 4 mg ONETIME ONE Administration Departure - Departure Time of Disposition: 07:15 Disposition: DC/Tfer to Acute Hospital 02 Condition: Serious Clinical Impression: Abdominal pain, Renal failure, Elevated LFTs, Cardiomyopathy, Paroxysmal atrial flutter, Type 2 diabetes mellitus, Lactic acid increased, Shock Pulmonary embolism Qualifiers: Pulmonary embolism type: other Chronicity: acute Acute cor pulmonale presence: without acute cor pulmonale Qualified Code(s): I26.99 - Other pulmonary embolism without acute cor pulmonale - Discharge Information Referrals: PCP,None [Primary Care Provider] - Sepsis Event Note (ED) - Focused Exam Vital Signs: Vital Signs Temp Pulse Resp BP Pulse Ox 12/10/20 06:45 36.7 C 20 L 20 112/80 5 L 12/10/20 06:10 80 22 H 96/55 L 12/10/20 05:17 35.9 C L 78 24 H 82/56 L 99 12/10/20 05:00 99 12/10/20 04:30 105 H 22 H 85/64 L 95 12/10/20 04:19 110 H 22 H 95/67 96 12/10/20 03:55 36.6 C 114 H 24 H 94/70 96 - My Orders Last 24 Hours: My Active Orders 12/10/20 04:05 Cardiac Monitoring [RC] . DIRECTED Pulse Oximetry [RC] ASDIRECTED Sodium Chloride 0.9% [Saline Flush] 10 ml FLUSH ASDIRECTED PRN Sodium Chloride 0.9% [Saline Flush] 2.5 ml FLUSH ASDIRECTED PRN Saline Lock Insert [OM.PC] Stat 12/10/20 04:15 PTT,PARTIAL THROMBOPLSTIN TIME [COAG] Stat 12/10/20 05:00 Sodium Chloride 0.9% [Normal Saline] 500 ml IV .BOLUS 12/10/20 05:05 EKG Documentation Completion [RC] STAT 12/10/20 06:10 Abdomen Pelvis wo Cont [CT] Stat 12/10/20 06:44 Dextrose 50% in Water 50 ml IV ASDIRECTED PRN Glucagon,Human Recombinant [GlucaGen] 1 mg IM ASDIRECTED PRN 12/10/20 06:45 Heparin Sodium/0.45% NaCl [Heparin 25,000 Units in 1/2 NS 500 ML] 500 ml IV TITRATE Norepinephrine Bit/0.9 % NaCl [Norepinephr-0.9% NaCl 4 mg/250] 4 mg in 250 ml IV TITRATE 12/11/20 00:45 PTT,PARTIAL THROMBOPLSTIN TIME [COAG] Q6H 12/11/20 06:45 PTT,PARTIAL THROMBOPLSTIN TIME [COAG] Q6H 12/11/20 12:45 PTT,PARTIAL THROMBOPLSTIN TIME [COAG] Q6H 12/11/20 18:45 PTT,PARTIAL THROMBOPLSTIN TIME [COAG] Q6H - Assessment/Plan Last 24 Hours: My Active Orders 12/10/20 04:05 Cardiac Monitoring [RC] . DIRECTED Pulse Oximetry [RC] ASDIRECTED Sodium Chloride 0.9% [Saline Flush] 10 ml FLUSH ASDIRECTED PRN Sodium Chloride 0.9% [Saline Flush] 2.5 ml FLUSH ASDIRECTED PRN Saline Lock Insert [OM.PC] Stat 12/10/20 04:15 PTT,PARTIAL THROMBOPLSTIN TIME [COAG] Stat 12/10/20 05:00 Sodium Chloride 0.9% [Normal Saline] 500 ml IV .BOLUS 12/10/20 05:05 EKG Documentation Completion [RC] STAT 12/10/20 06:10 Abdomen Pelvis wo Cont [CT] Stat 12/10/20 06:44 Dextrose 50% in Water 50 ml IV ASDIRECTED PRN Glucagon,Human Recombinant [GlucaGen] 1 mg IM ASDIRECTED PRN 12/10/20 06:45 Heparin Sodium/0.45% NaCl [Heparin 25,000 Units in 1/2 NS 500 ML] 500 ml IV TITRATE Norepinephrine Bit/0.9 % NaCl [Norepinephr-0.9% NaCl 4 mg/250] 4 mg in 250 ml IV TITRATE 12/11/20 00:45 PTT,PARTIAL THROMBOPLSTIN TIME [COAG] Q6H 12/11/20 06:45 PTT,PARTIAL THROMBOPLSTIN TIME [COAG] Q6H 12/11/20 12:45 PTT,PARTIAL THROMBOPLSTIN TIME [COAG] Q6H 12/11/20 18:45 PTT,PARTIAL THROMBOPLSTIN TIME [COAG] Q6H
[2020-12-10 04:43] LABS: CARBON DIOXIDE,CO2 22.9 mmol/L (21.0-32.0); POTASSIUM,K 5.7 mmol/L (3.5-5.1)
--- NOTE | 2020-12-10 04:45 | CR ---
Indication: Epigastric pain Technique: Chest 1 view Comparison: Chest x-ray 11/22/2020 Findings/Impression: Cardiovascular and mediastinum: Globular cardiomegaly. Lungs and pleural space: No pleural effusion or pneumothorax. Minimal discoid atelectasis. Bones and soft tissues: No acute findings. Dictated by Justin Newman MD @ Dec 10 2020 4:43AM Signed by Dr. Justin Newman @ Dec 10 2020 4:44AM
[2020-12-10] MEDS ORDERED: Enoxaparin 100 MG/1 ML Syringe SUBCUT ONE (04:57)
[2020-12-10] MEDS ORDERED: Sodium Chloride 0.9% 500 ML IV SCH (05:00)
[2020-12-10] MEDS ORDERED: 50% Dextrose in Water 50 ML Syringe IVPUSH ONE (06:43)
[2020-12-10] MEDS ORDERED: Insulin Regular, Human 100 Units/ML 10 ML Vial IVPUSH ONE (06:44)
[2020-12-10] MEDS ORDERED: Glucagon,Human Recombinant 1 MG Vial IM PRN (06:44)
[2020-12-10] MEDS ORDERED: 50% Dextrose in Water 50 ML Syringe IV PRN (06:44)
[2020-12-10] MEDS ORDERED: Heparin Sodium/0.45% NaCl 500 ML IV SCH (06:45)
[2020-12-10] MEDS ORDERED: Calcium Gluconate 10% 1 GM/10 ML SDV IV ONE (06:45)
--- NOTE | 2020-12-10 07:17 | CT ---
INDICATION: Abdominal pain. TECHNIQUE: CT of abdomen and pelvis performed without oral IV contrast due to renal insufficiency. COMPARISON: CT chest 11/22/2020. 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 Subtle old rib fractures. Moderate subcutaneous edema in the back. Heart is moderately enlarged. 3 cm oval-shaped low-density structure along the right heart on image 10 is likely a pericardial cyst. Moderate atherosclerotic coronary artery calcification. Small amount of pericardial fluid. Mild fibrosis and atelectasis in the lung bases. Emphysema. Small amounts of ascites and fat stranding in the abdomen and pelvis could be related inflammation or edema of uncertain etiology. The gallbladder is not well distended. Fluid and fat stranding around the gallbladder suggesting inflammation or edema could be related to the more diffuse fluid and stranding in the abdomen and pelvis but could raise the suspicion of cholecystitis. This could be further evaluated with gallbladder ultrasound or HIDA scan as desired. Diffuse fatty infiltration of liver. Colonic diverticulosis. Moderate gas distention stomach with air-fluid level with similar gas distention in the proximal aspect of the duodenum. Moderate vascular calcifications abdomen pelvis. Small lymph nodes in the abdomen pelvis are not enlarged by CT criteria. Small right inguinal hernia containing fat in density which could be in part related to an undescended testicle. Urinary bladder not well distended. Colonic diverticulosis. Fat density change in the wall of the colon diffusely could be related to chronic or previous inflammation. The appendix is normal. Remainder negative. IMPRESSION: 1. Small amounts of ascites throughout the abdomen and pelvis with fat stranding in the abdominal and pelvic fat consistent with inflammation and/or edema of uncertain etiology. 2. Fluid and fat stranding around the gallbladder could be related to the more diffuse inflammation and edema in the abdomen and pelvis but is more prominent around the gallbladder and could raise the suspicion of cholecystitis. If this is a clinical consideration HIDA scan or gallbladder ultrasound suggested. 3. Colonic diverticulosis without evidence diverticulitis. 4. Right inguinal hernia containing fat and density either related to fluid and/or an undescended right testicle. 5. Cardiac enlargement. Right-sided pericardial cyst stable when compared to 11/22/2020. Small pericardial effusion. Moderate cardiac enlargement. 6. Not mentioned above is nodular low density in the right retrocrural region which is stable and could be related to lymphatic structures or low-density lymph nodes. Other findings as above. Please note that all CT scans at this facility use dose modulation, iterative reconstruction, and/or weight-based dosing when appropriate to reduce radiation dose to as low as reasonably achievable. Dictated by Dmitri Barber MD @ Dec 10 2020 7:14AM Signed by Dr. Dmitri Barber @ Dec 10 2020 7:15AM
== END 2020-12-10 07:30 ==
LOC: MW.ED 03:55
DX: I26.99 Other pulmonary embolism without acute cor pulmonale (principal); I48.92 Unspecified atrial flutter; I42.9 Cardiomyopathy, unspecified; R74.02 Elevation of levels of lactic acid dehydrogenase [LDH]; E11.9 Type 2 diabetes mellitus without complications; R79.89 Other specified abnormal findings of blood chemistry; N19 Unspecified kidney failure; R57.9 Shock, unspecified; Z20.822 Contact with and (suspected) exposure to COVID-19; E66.9 Obesity, unspecified; I50.9 Heart failure, unspecified; Z68.34 Body mass index [BMI] 34.0-34.9, adult; Z79.899 Other long term (current) drug therapy
CPT/HCPCS: 36415; 71045; 74176; 80053; 80162; 83605; 83690; 83880; 84484; 85025; 85730; 87635; 93005; 96365; 96368; 96372; 96375; 99285; J0610; J1644; J1650; J1815; J2405; J3010; J7040; 93010; 99291; 99292; U0002